=== PATIENT | female | born 1935 | race Caucasian/White ===

== ENCOUNTER 2016-11-10 12:00 | Outpatient (CLI) | payer MEDICARE ==
[~2016-11-10] VITALS: Ht 167.6 cm; Wt 72.6 kg
[~2016-11-10 12:00] MED LIST: ASPI-624 PO; CHOL100011 PO; FENO145T2 PO; FLAX100031 PO; HCT25T PO; IBUP200C14 PO; METO25TA2 PO; PROP1TAB77; SENN1TAB76 PO; TRM50T PO; [UNRECOGNIZED DRUG - REMARK]
[2016-11-10] MEDS ORDERED: FAMO20TA3 PO (12:15)
[2016-11-10] MEDS ORDERED: HYDR12.56 PO (12:15)
== END 2016-11-10 12:30 ==
LOC: PREOP 12:00
PROVIDERS: ATTEND Internal Medicine
DX: Z01.818 Encounter for other preprocedural examination (principal); R19.4 Change in bowel habit; Z86.010 Personal history of colon polyps; R13.10 Dysphagia, unspecified; R10.32 Left lower quadrant pain; R07.9 Chest pain, unspecified

== ENCOUNTER 2016-11-12 07:56 | Day surgery (SDC) | payer MEDICARE ==
--- NOTE | 2016-11-04 21:58 | HISTORY AND PHYSICAL ---
DATE OF SERVICE: PANENDOSCOPY HISTORY AND PHYSICAL HISTORY OF PRESENT ILLNESS: The patient is an 81-year-old, white female referred by Dr. Arteaga for panendoscopy. She reports a history of colon polyps and, over the past several months, has noted a change in stool caliber. She has noticed diminishing signs of her stool. She has had some left lower quadrant abdominal pain associated with this. She denies chills or fever. She has noticed some lower precordial chest discomfort as well and has noticed some dysphagia predominantly to pills and occasionally to solids. She denies problems with liquids. She denies melena or bright red blood per rectum. She does not believe that there has been associated weight loss. She does have a known history of diverticulosis. She denies chills or fever. PAST SURGICAL HISTORY: Significant for past MMA, hysterectomy and appendectomy, all in the distant past. She has a past history of being H pylori positive, but does not recall a past history of peptic ulcer disease, and she had undergone abdominal sonography within the past year and reports that this was unremarkable. PAST MEDICAL HISTORY: Significant for hyperlipidemia and hypertension, as well as chronic constipation, for which she has required Senokot 2 b.i.d. OTHER MEDICATIONS: Include fenofibrate 145 mg daily, metoprolol tartrate 25 mg b.i.d., hydrochlorothiazide 12.5 mg daily and famotidine 20 mg daily. FAMILY HISTORY: Her youngest brother has a history of ulcerative colitis and had to undergo colectomy subtotal for this. Oldest brother had [place] cell carcinoma and succumbed to this. SOCIAL HISTORY: She is a retired homemaker with no past history of smoking or alcohol intake. PHYSICAL EXAMINATION: GENERAL: Reveals a white female who appears to be in no acute distress, appearing a little younger than her stated age. VITAL SIGNS: Blood pressure was 144/80, weight is 160.9 pounds. HEENT: Sclerae nonicteric. Oral cavity reveals a Mallampati class 2 configuration, no evidence for posterior pharyngeal erythema is noted. NECK: Reveals no JVD, adenopathy or bruits. CHEST: Clear. CARDIOVASCULAR: Reveals regular rate and rhythm without murmur, S3 or S4. ABDOMEN: Soft, supple, without mass or organomegaly, left lower quadrant pain to palpation is present without rebound or guarding. EXTREMITIES: Reveal no cyanosis, clubbing or edema. REFERRING PHYSICIAN: Celia Arteaga DO ASSESSMENT: The patient was set up for panendoscopy due to left lower quadrant abdominal pain and change in stool caliber with a past history of colon polyps, as well as chest pain with dysphasia. She is set up for 11/12/2016. Prep instructions were given, and questions were answered. I thank you for the referral of this pleasant lady. Job ID: [id number] DocumentID: [id number] Dictated Date: 11/04/2016 21:06:02 Fifth Hand Date: 11/04/2016 21:57:48 Dictated By: TRUONG CRUZ MD MTDD
[~2016-11-12] VITALS: Ht 167.6 cm; Wt 72.6 kg
[~2016-11-12 07:56] MED LIST changes: +FAMO20TA3 PO; +HYDR12.56 PO
[2016-11-12 08:05] VITALS: BP 145/69
[2016-11-12] MEDS ORDERED: fentaNYL INJECTION 100 MCG/2 ML AMP IVP PRN (08:15)
[2016-11-12] MEDS ORDERED: FLUMAZENIL (ROMAZICON) 0.1 MG/ML 5 ML VIAL INJ PRN (08:15)
[2016-11-12] MEDS ORDERED: HURRICAINE EXT TUBE (BENZOCAINE) XX PRN (08:15)
[2016-11-12] MEDS ORDERED: MIDAZOLAM 2 MG/2 ML (VERSED) VIAL IVP PRN (08:15)
[2016-11-12] MEDS ORDERED: NALOXONE 0.4 MG/ML 1 ML (NARCAN) VIAL IVP PRN (08:15)
[2016-11-12] MEDS ORDERED: 1/2 NS IV SOLUTION 1,000 ML IV PRN (08:15)
[2016-11-12] MEDS ORDERED: LIDOCAINE JELLY 2% (XYLOCAINE) 5 ML TUBE MM PRN (08:15)
--- NOTE | 2016-11-12 08:30 | Pre-Op Note & Conscious Sedat ---
Pre-Operative Progress Note H&P Reviewed The H&P was reviewed, patient examined and no changes noted. Date H&P Reviewed: Nov 12, 2016 Time H&P Reviewed: 08:29 Conscious Sedation Pre-Proced ASA Class: 2 Airway Mallampati Classification: (squaxin appropriate class) I. II. III, IV Lungs Heart ASA score ASA 1: a normal healthy patient ASA 2: a patient with a mild systemic disease (mid diabetes, controlled hypertension, obesity ASA 3: a patient with a severe systemic disease that limits activity (angina , COPD, prior Myocardial infarction) ASA 4: a patient with an incapacitating disease that is a constant threat to life (CHF, renal failure) ASA 5: a moribund patient not expected to survive 24 hrs. (ruptured aneurysm) ASA 6: a declared brain patient whose organs are being harvested. For emergent operations, add the letter E after the classification Grade 2 Sedation Plan: Analgesia, Amnesia, Plan communicated to team members, Discussed options with patient/fam, Discussed risks with patient/fam Note The patient is an appropriate candidate to undergo the planned procedure, sedation, and anesthesia. The patient immediately re-assessed prior to indication. TRUONG CRUZ MD Nov 12, 2016 08:29
[2016-11-12] MEDS ORDERED: MIDAZOLAM 2 MG/2 ML (VERSED) VIAL ONE (08:32)
[2016-11-12] MEDS ORDERED: PROPOFOL INJECTION 50 ML IV ONE (08:32)
[2016-11-12] MEDS ORDERED: LIDOCAINE JELLY 2% (XYLOCAINE) 5 ML TUBE ONE (08:40)
[2016-11-12] MEDS ORDERED: HURRICAINE EXT TUBE (BENZOCAINE) ONE (08:40)
[2016-11-12 09:35] VITALS: BP 123/59
[2016-11-12 10:00] VITALS: BP 145/64
[2016-11-12 10:30] VITALS: BP 145/64
--- NOTE | 2016-11-12 12:23 | OPERATIVE REPORT ---
DATE OF SERVICE: OPERATION: Panendoscopy. INDICATIONS FOR THE PROCEDURE: Colonoscopy was performed for change in stool caliber with a history of colon polyps. EGD is performed for evaluation of dysphagia. PROCEDURE: The patient was placed in a left lateral decubitus position. Prior to undergoing colonoscopy, a digital rectal evaluation was performed. Anal sphincter tone was normal and the perianal reflex is intact. No abnormalities were noted on digital inspection of the anal canal or distal rectal vault. The colonoscope was then inserted into the rectum and under direct visualization advanced to the cecum. The cecum was identified by identification of the ileocecal valve and the cecal strap. Photographic documentation was obtained. A careful inspection was made as the colonoscope was withdrawn. FINDINGS: No evidence for internal or external hemorrhoids and the rectum was unremarkable. Moderate diverticular disease was present confined to the sigmoid colon with haustral hypertrophy. There were several large diverticulum and multiple small to medium diverticulum confined to the sigmoid colon without evidence for diverticulitis. One questionably inflammatory appearing polyp was noted at 20 cm in the distal sigmoid colon. It was photographed and biopsied and ablated with no subsequent blood loss. The descending colon, transverse colon, ascending colon and cecum, other than slightly enlarged caliber, as well as changes compatible with mild melanosis coli, were unremarkable. No other evidence for neoplasia, vascular malformation or inflammatory change was noted. ASSESSMENT: Moderate diverticular disease confined to the sigmoid colon was present with haustral hypertrophy. One inflammatory appearing polyp was noted in the distal sigmoid colon, which was biopsied and ablated and submitted for histopathology. The patient did have colon pigmentary changes compatible with mild diffuse melanosis coli. As long as there is no surprise on histopathology report would not advocate future surveillance colonoscopy. We then proceeded with EGD evaluation. The endoscope was inserted in the oral cavity and under direct visualization the esophagus was intubated. The endoscope was passed down the esophagus, through the stomach and into the second portion of the duodenum. Careful inspection was made as the endoscope was withdrawn. The patient tolerated the procedure well. FINDINGS: Posterior hypopharynx, true arytenoid aperture, true and false focal folds were unremarkable. There was a small traction appearing diverticulum in the upper esophagus. There was no evidence for food retention and no evidence for inflammation was noted. There was minimal erythema noted at the Z-line with a small hiatal hernia. There was no evidence for erosive esophagitis or stricture formation. Photograph was obtained. The cardia, fundus, antrum, pylorus, pyloric channel, duodenal bulb and second portion of the duodenum were unremarkable. ASSESSMENT: Small hiatal hernia that was present with mild erythema at the Z-line, but no evidence for erosive esophagitis or evidence to suggest Perry's change was noted. One small traction appearing diverticulum was noted in the upper esophagus without evidence for inflammation or food material. No other significant abnormalities that were identified. The patient was reassured by today's findings. Job ID: [id number] DocumentID: [id number] Dictated Date: 11/12/2016 09:35:17 Manager Transfusion Date: 11/12/2016 12:23:07 Dictated By: TRUONG CRUZ MD
== END 2016-11-12 10:30 | disposition home or self-care (01) ==
LOC: ENDO 07:56
PROVIDERS: ATTEND Internal Medicine
DX: K63.5 Polyp of colon (principal); R19.4 Change in bowel habit; K57.30 Diverticulosis of large intestine without perforation or abscess without bleeding; Z86.010 Personal history of colon polyps; K21.9 Gastro-esophageal reflux disease without esophagitis; K44.9 Diaphragmatic hernia without obstruction or gangrene; K22.5 Diverticulum of esophagus, acquired; E78.5 Hyperlipidemia, unspecified; I10 Essential (primary) hypertension; Z79.899 Other long term (current) drug therapy
CPT/HCPCS: 88305

== ENCOUNTER 2017-01-28 20:12 | Emergency (ER) | payer MEDICARE ==
[~2017-01-28] VITALS: Ht 167.6 cm; Wt 72.6 kg
--- OUTSIDE RECORDS SUMMARY | 2017-01-28 20:18 | XMS REPORT | Continuity of Care Document ---
Author Author [facility] Organization [facility] Address Unknown Phone Unavailable Allergies Active Description Code Type Severity Reaction Onset Reported/Identified Relationship to Patient Clinical Status Yes codeine [id number] Drug Allergy Mild N/A 01/18/2009 Yes nitroglycerin [id number] Drug Allergy Mild N/A 01/18/2009 Yes Penicillins [id number] Drug Allergy Mild N/A 01/18/2009 Yes niacin [id number] Drug Allergy Severe N/A 10/03/2013 Yes clarithromycin [id number] Drug Allergy Unknown N/A 10/03/2013 Yes hydroxyzine [id number] Drug Allergy Unknown N/A 10/03/2013 Yes metronidazole [id number] Drug Allergy Unknown N/A 10/03/2013 Yes Tetracyclines [id number] Drug Allergy Unknown N/A 10/03/2013 Yes tramadol [id number] Drug Allergy Unknown NAUSEA 10/03/2013 Medications Problems Date Dx Coded Attending Type Code Diagnosis Diagnosed By 10/05/2013 LUZ REMY, ARIELA Holman Ot 216.3 BENIGN JOANNE SKIN FACE NEC 10/05/2013 LUZ REMY, ARIELA Holman Ot 562.10 DIVERTICULOSIS COLON (W/O MENT OF HEMORR 10/05/2013 LUZ REMY, ARIELA Holman Ot 569.89 INTESTINAL DISORDERS NEC 10/05/2013 LUZ REMY, ARIELA Holman Ot 702.0 ACTINIC KERATOSIS 10/05/2013 LUZ REMY, ARIELA Holman Ot V12.72 PERSONAL HISTORY OF COLONIC POLYPS 10/05/2013 LUZ REMY, ARIELA Holman Ot V76.51 SCREEN MAL NEOP-COLON 07/01/2014 JENNIFER MORTON PULP REFINER OPERATOR Ot 442.3 07/01/2014 JENNIFER MORTON PULP REFINER OPERATOR Ot 443.9 07/08/2014 JENNIFER MORTON PULP REFINER OPERATOR Ot 442.3 07/08/2014 JENNIFER MORTON PULP REFINER OPERATOR Ot 443.9 04/23/2015 ELLIOTNDER DO, TATIANA S Ot 782.2 04/23/2015 ELLIOTNDER DO, TATIANA S Ot 793.81 04/24/2015 ELLIOTNDER DO, TATIANA S Ot 729.5 05/05/2015 ELLIOTNDER DO, TATIANA S Ot 782.2 05/05/2015 ELLIOTNDER DO, TATIANA S Ot 793.81 05/05/2015 ELLIOTNDER DO, TATIANA S Ot 729.5 03/30/2016 ELLIOTNDEMERY ARREGUIN, TATIANA S Ot Z12.31 ENCNTR SCREEN MAMMOGRAM FOR MALIGNANT NE 03/30/2016 ELLIOTNDEMERY ARREGUIN, TATIANA S Ot Z12.31 ENCNTR SCREEN MAMMOGRAM FOR MALIGNANT NE 04/21/2016 PADMINI ARREGUIN, TATIANA S Ot Z12.31 ENCNTR SCREEN MAMMOGRAM FOR MALIGNANT NE 05/15/2016 JAQUELINE BRAVO MD Ot R07.9 CHEST PAIN, UNSPECIFIED 05/15/2016 JAQUELINE BRAVO MD Ot Z79.82 LONGTERM (CURRENT) USE OF ASPIRIN 05/15/2016 JAQUELINE BRAVO MD Ot Z79.899 OTHER CONSTRUCTION WORKER (CURRENT) DRUG THERAPY 05/15/2016 Ot 443.9 PERIPH VASCULAR DIS NOS 05/15/2016 Ot 443.9 PERIPH VASCULAR DIS NOS 05/15/2016 Ot V76.12 OTH SCREEN MAMMO-MALIGN NEOPLASM OF CECILY 05/15/2016 Ot 786.09 RESPIRATORY ABNORM NEC 05/15/2016 Ot 786.2 COUGH 05/15/2016 Ot 719.06 JOINT EFFUSION-L/LEG 05/15/2016 Ot 959.3 ELB/FOREARM/WRST INJ NOS 05/15/2016 Ot 959.7 LOWER LEG INJURY NOS 05/15/2016 Ot E000.8 OTHER EXTERNAL CAUSE STATUS 05/15/2016 Ot E849.6 ACCIDENT IN PUBLIC BLDG 05/15/2016 Ot E888.9 FALL NOS 05/15/2016 Ot V76.12 OTH SCREEN MAMMO-MALIGN NEOPLASM OF CECILY 05/15/2016 Ot 443.9 PERIPH VASCULAR DIS NOS 05/15/2016 PADMINI ARREGUIN, TATIANA S Ot V76.12 OTH SCREEN MAMMO-MALIGN NEOPLASM OF CECILY 05/15/2016 ELLIOTNDER , TATIANA S Ot 443.9 PERIPH VASCULAR DIS NOS 05/15/2016 LUZ REMY, ARIELA Holman Ot 709.9 SKIN DISORDER NOS 05/15/2016 LUZ REMY, ARIELA Holman Ot V72.81 RNFL-GGG-WUDNLVCCM CARDIOVASCULAR 05/15/2016 LUZ REMY, ARIELA Holman Ot V72.84 EXAM PRE-OPERATIVE NOS 05/15/2016 LUZ REMY, ARIELA Holman Ot V74.8 SCREEN-BACTERIAL DIS NEC 05/15/2016 MARCY MORTONSA M PULP REFINER OPERATOR Ot V76.12 OTH SCREEN MAMMO-MALIGN NEOPLASM OF CECILY 05/15/2016 VANJEROMEREMARCYSA M PULP REFINER OPERATOR Ot 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 05/15/2016 VANISAACELAERE JENNIFER M PULP REFINER OPERATOR Ot 443.9 PERIPH VASCULAR DIS NOS 05/15/2016 ELLIOTNDER , TATIANA S Ot 782.2 LOCAL SUPRFICIAL SWELLNG 05/15/2016 ELLIOTNDER , TATIANA S Ot 793.81 MAMMOGRAPHIC MICROCLACIFICATION 05/15/2016 PADMINI ARREGUIN, TATIANA S Ot 729.5 PAIN IN LIMB 05/15/2016 ELLIOTNDER DO, TATIANA S Ot Z12.31 ENCNTR SCREEN MAMMOGRAM FOR MALIGNANT NE 05/15/2016 VANISAACELAEREJENNIFER M PULP REFINER OPERATOR Ot 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 05/15/2016 VANBECELAERE, JENNIFER M PULP REFINER OPERATOR Ot 443.9 PERIPH VASCULAR DIS NOS 05/15/2016 ELLIOTNDER DO, TATIANA S Ot 782.2 LOCAL SUPRFICIAL SWELLNG 05/15/2016 ELLIOTNDER DO, TATIANA S Ot 793.81 MAMMOGRAPHIC MICROCLACIFICATION 05/15/2016 ELLIOTNDER , TATIANA S Ot 729.5 PAIN IN LIMB 05/15/2016 PADMINI ARREGUIN, TATIANA S Ot Z12.31 ENCNTR SCREEN MAMMOGRAM FOR MALIGNANT NE 05/17/2016 SHELLY REMY, JAQUELINE [place] Ot R07.9 CHEST PAIN, UNSPECIFIED 05/17/2016 JAQUELINE BRAVO MD Ot Z79.82 LONGTERM (CURRENT) USE OF ASPIRIN 05/17/2016 QI BRAVO MDNEY K Ot Z79.899 OTHER CONSTRUCTION WORKER (CURRENT) DRUG THERAPY 11/08/2016 TREVERISAACJENNIFER SANTORO PULP REFINER OPERATOR Ot 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 11/08/2016 TREVERISAACJENNIFER SANTORO PULP REFINER OPERATOR Ot 443.9 PERIPH VASCULAR DIS NOS 11/08/2016 ORENDER DO, TATIANA S Ot 782.2 LOCAL SUPRFICIAL SWELLNG 11/08/2016 ORENDER DO, TATIANA S Ot 793.81 MAMMOGRAPHIC MICROCLACIFICATION 11/08/2016 ORENDER DO, TATIANA S Ot 729.5 PAIN IN LIMB 11/08/2016 ORENDER DO, TATIANA S Ot Z12.31 ENCNTR SCREEN MAMMOGRAM FOR MALIGNANT NE 11/08/2016 TRUONG CRUZ MD Ot Z53.9 PROCEDURE AND TREATMENT NOT CARRIED OUT, 11/09/2016 TRUONG CRUZ MD Ot E78.5 HYPERLIPIDEMIA, UNSPECIFIED 11/09/2016 TRUONG CRUZ MD Ot I10 ESSENTIAL (PRIMARY) HYPERTENSION 11/09/2016 TRUONG CRUZ MD Ot K59.09 OTHER CONSTIPATION 11/09/2016 TRUONG CRUZ MD Ot R10.32 LEFT LOWER QUADRANT PAIN 11/09/2016 TRUONG CRUZ MD Ot Z53.9 PROCEDURE AND TREATMENT NOT CARRIED OUT, 11/09/2016 TRUONG CRUZ MD Ot Z86.010 PERSONAL HISTORY OF COLONIC POLYPS 11/10/2016 TRUONG CRUZ MD Ot E78.5 HYPERLIPIDEMIA, UNSPECIFIED 11/10/2016 TRUONG CRUZ MD Ot I10 ESSENTIAL (PRIMARY) HYPERTENSION 11/10/2016 TRUONG CRUZ MD Ot K59.09 OTHER CONSTIPATION 11/10/2016 TRUONG CRUZ MD Ot R10.32 LEFT LOWER QUADRANT PAIN 11/10/2016 TRUONG CRUZ MD Ot Z53.9 PROCEDURE AND TREATMENT NOT CARRIED OUT, 11/10/2016 TRUONG CRUZ MD Ot Z86.010 PERSONAL HISTORY OF COLONIC POLYPS 11/10/2016 TRUOGN CRUZ MD Ot Z53.9 PROCEDURE AND TREATMENT NOT CARRIED OUT, 11/10/2016 TRUONG CRUZ MD Ot R07.9 CHEST PAIN, UNSPECIFIED 11/10/2016 TRUONG CRUZ MD Ot R10.32 LEFT LOWER QUADRANT PAIN 11/10/2016 TRUONG CRUZ MD Ot R13.10 DYSPHAGIA, UNSPECIFIED 11/10/2016 NANCY REMY, TRUONG Donahue Ot R19.4 CHANGE IN BOWEL HABIT 11/10/2016 NANCY REMY, TRUONG Donahue Ot Z01.818 ENCOUNTER FOR OTHER PREPROCEDURAL EXAMIN 11/10/2016 TRUONG CRUZ MD Ot Z86.010 PERSONAL HISTORY OF COLONIC POLYPS 11/10/2016 TRUONG CRUZ MD Ot E78.5 HYPERLIPIDEMIA, UNSPECIFIED 11/10/2016 TRUONG CRUZ MD Ot I10 ESSENTIAL (PRIMARY) HYPERTENSION 11/10/2016 TRUONG CRUZ MD Ot K59.09 OTHER CONSTIPATION 11/10/2016 TRUONG CRUZ MD Ot R10.32 LEFT LOWER QUADRANT PAIN 11/10/2016 TRUONG CRUZ MD Ot Z53.9 PROCEDURE AND TREATMENT NOT CARRIED OUT, 11/10/2016 TRUONG CRUZ MD Ot Z86.010 PERSONAL HISTORY OF COLONIC POLYPS 11/11/2016 TRUONG CRUZ MD Ot E78.5 HYPERLIPIDEMIA, UNSPECIFIED 11/11/2016 TRUONG CRUZ MD Ot I10 ESSENTIAL (PRIMARY) HYPERTENSION 11/11/2016 TRUONG CRUZ MD Ot K59.09 OTHER CONSTIPATION 11/11/2016 TRUONG CRUZ MD Ot R10.32 LEFT LOWER QUADRANT PAIN 11/11/2016 TRUONG CRUZ MD Ot Z53.9 PROCEDURE AND TREATMENT NOT CARRIED OUT, 11/11/2016 TRUONG CRUZ MD Ot Z86.010 PERSONAL HISTORY OF COLONIC POLYPS 11/11/2016 TRUONG CRUZ MD Ot E78.5 HYPERLIPIDEMIA, UNSPECIFIED 11/11/2016 TRUONG CRUZ MD Ot I10 ESSENTIAL (PRIMARY) HYPERTENSION 11/11/2016 TRUONG CRUZ MD Ot K59.09 OTHER CONSTIPATION 11/11/2016 TRUONG CRUZ MD Ot R10.32 LEFT LOWER QUADRANT PAIN 11/11/2016 TRUONG CRUZ MD Ot Z53.9 PROCEDURE AND TREATMENT NOT CARRIED OUT, 11/11/2016 TRUONG CRUZ MD Ot Z86.010 PERSONAL HISTORY OF COLONIC POLYPS 11/12/2016 TRUONG CRUZ MD Ot E78.5 HYPERLIPIDEMIA, UNSPECIFIED 11/12/2016 TRUONG CRUZ MD Ot I10 ESSENTIAL (PRIMARY) HYPERTENSION 11/12/2016 TRUONG CRUZ MD Ot K59.09 OTHER CONSTIPATION 11/12/2016 TRUONG CRUZ MD Ot R10.32 LEFT LOWER QUADRANT PAIN 11/12/2016 TRUONG CRUZ MD Ot Z53.9 PROCEDURE AND TREATMENT NOT CARRIED OUT, 11/12/2016 TRUONG CRUZ MD Ot Z86.010 PERSONAL HISTORY OF COLONIC POLYPS 11/12/2016 TRUONG CRUZ MD Ot E78.5 HYPERLIPIDEMIA, UNSPECIFIED 11/12/2016 TRUONG CRUZ MD Ot I10 ESSENTIAL (PRIMARY) HYPERTENSION 11/12/2016 TRUONG CRUZ MD Ot K21.9 GASTRO-ESOPHAGEAL REFLUX DISEASE WITHOUT 11/12/2016 TRUONG CRUZ MD Ot K22.5 DIVERTICULUM OF ESOPHAGUS, ACQUIRED 11/12/2016 TRUONG CRUZ MD Ot K44.9 DIAPHRAGMATIC HERNIA WITHOUT OBSTRUCTION 11/12/2016 TRUONG CRUZ MD Ot K57.30 DVRTCLOS OF LG INT W/O PERFORATION OR AB 11/12/2016 TRUONG CRUZ MD Ot K63.5 POLYP OF COLON 11/12/2016 TRUONG CRUZ MD Ot R19.4 CHANGE IN BOWEL HABIT 11/12/2016 TRUONG CRUZ MD Ot Z79.899 OTHER LONGTERM (CURRENT) DRUG THERAPY 11/12/2016 TRUONG CRUZ MD Ot Z86.010 PERSONAL HISTORY OF COLONIC POLYPS 11/26/2016 TRUONG CRUZ MD Ot E78.5 HYPERLIPIDEMIA, UNSPECIFIED 11/26/2016 TRUONG CRUZ MD Ot I10 ESSENTIAL (PRIMARY) HYPERTENSION 11/26/2016 TRUONG CRUZ MD Ot K21.9 GASTRO-ESOPHAGEAL REFLUX DISEASE WITHOUT 11/26/2016 TRUONG CRUZ MD Ot K22.5 DIVERTICULUM OF ESOPHAGUS, ACQUIRED 11/26/2016 TRUONG CRUZ MD Ot K44.9 DIAPHRAGMATIC HERNIA WITHOUT OBSTRUCTION 11/26/2016 TRUONG CRUZ MD Ot K57.30 DVRTCLOS OF LG INT W/O PERFORATION OR AB 11/26/2016 TRUONG CRUZ MD Ot K63.5 POLYP OF COLON 11/26/2016 TRUONG CRUZ MD Ot R19.4 CHANGE IN BOWEL HABIT 11/26/2016 TRUONG CRUZ MD Ot Z79.899 OTHER CONSTRUCTION WORKER (CURRENT) DRUG THERAPY 11/26/2016 TRUONG CRUZ MD Ot Z86.010 PERSONAL HISTORY OF COLONIC POLYPS Procedures Results Test Result Range Complete blood count (CBC) with automated white blood cell (WBC) differential - 05/15/16 15:12 Blood leukocytes automated count (number/volume) 6.6 10*3/ uL 4.3-11.0 Blood erythrocytes automated count (number/volume) 4.02 10*6 /uL 4.35-5.85 Venous blood hemoglobin measurement (mass/volume) 12.5 g/dL 11.5-16.0 Blood hematocrit (volume fraction) 37 % 35-52 Automated erythrocyte mean corpuscular volume 92 [foz_us] 80-99 Automated erythrocyte mean corpuscular hemoglobin (mass per erythrocyte) 31 pg 25-34 Automated erythrocyte mean corpuscular hemoglobin concentration measurement ( mass/volume) 34 g/dL 32-36 Automated erythrocyte distribution width ratio 12.4 % 10.0-14.5 Automated blood platelet count (count/volume) 397 10*3/uL 130-400 Automated blood platelet mean volume measurement 9.9 [foz_us ] 7.4-10.4 Automated blood neutrophils/100 leukocytes 60 % 42-75 Automated blood lymphocytes/100 leukocytes 26 % 12-44 Blood monocytes/100 leukocytes 11 % 0-12 Automated blood eosinophils/100 leukocytes 2 % 0-10 Automated blood basophils/100 leukocytes 1 % 0-10 Blood neutrophils automated count (number/volume) 4.0 10*3 1.8-7.8 Blood lymphocytes automated count (number/volume) 1.7 10*3 1.0-4.0 Blood monocytes automated count (number/volume) 0.7 10*3 0.0-1.0 Automated eosinophil count 0.1 10*3/uL 0.0-0.3 Automated blood basophil count (count/volume) 0.1 10*3/uL 0.0-0.1 Comprehensive metabolic panel - 05/15/16 15:12 Serum or plasma sodium measurement (moles/volume) 141 mmol/ L 135-145 Serum or plasma potassium measurement (moles/volume) 3.7 mmol/L 3.6-5.0 Serum or plasma chloride measurement (moles/volume) 106 mmol /L 98-107 Carbon dioxide 29 mmol/L 21-32 Serum or plasma anion gap determination (moles/volume) 6 mmol/L 5-14 Serum or plasma urea nitrogen measurement (mass/volume) 15 mg/dL 7-18 Serum or plasma creatinine measurement (mass/volume) 0.77 mg /dL 0.60-1.30 Serum or plasma urea nitrogen/creatinine mass ratio 19 NRG Serum or plasma creatinine measurement with calculation of estimated glomerular filtration rate > NRG Serum or plasma glucose measurement (mass/volume) 97 mg/dL 70-105 Serum or plasma calcium measurement (mass/volume) 9.7 mg/dL 8.5-10.1 Serum or plasma total bilirubin measurement (mass/volume) 0.5 mg/dL 0.1-1.0 Serum or plasma alkaline phosphatase measurement (enzymatic activity/volume) 56 U/L 40-136 Serum or plasma aspartate aminotransferase measurement (enzymatic activity/ volume) 37 U/L 5-34 Serum or plasma alanine aminotransferase measurement (enzymatic activity/volume ) 26 U/L 0-55 Serum or plasma protein measurement (mass/volume) 6.5 g/dL 6.4-8.2 Serum or plasma albumin measurement (mass/volume) 4.1 g/dL 3.2-4.5 Serum or plasma troponin i.cardiac measurement (mass/volume) - 05/15/16 15:12 Serum or plasma troponin i.cardiac measurement (mass/volume) < ng/mL <0.30 Encounters ACCT No. Visit Date/Time Discharge Status Pt. Type Provider Facility Loc./Unit Complaint [id number] 11/12/2016 07:56:00 2016 10:30:00 DIS Outpatient TRUONG CRUZ MD [facility] ENDO CHANGE IN STOOL CALIBER, HX COLON POLYPS, [id number] 11/10/2016 12:00:00 2016 12:30:00 DIS Outpatient TRUONG CRUZ MD [facility] PREOP CHANGE IN STOOL CALIBER, HX COLON POLYPS, [id number] 05/15/2016 14:09:00 2015 16:10:00 DIS Emergency JAQUELINE BRAVO MD [facility] ER CHEST TIGHTNESS [id number] 04/04/2015 11:42:00 2014 23:59:59 CLS Outpatient TATIANA WASHINGTON DO [facility] RAD RIGHT LEG CALF PAIN [id number] 04/02/2015 12:59:00 2014 23:59:59 CLS Outpatient ELLIOTTATIANA MCCAIN DO S [facility] RAD RT AXILLARY MASS [id number] 06/03/2014 11:40:00 2013 23:59:59 CLS Outpatient JENNIFER MORTON PULP REFINER OPERATOR [facility] RAD RT POPITEAL ANYEYRSM, [id number] 05/01/2014 14:37:00 2013 23:59:59 CLS Outpatient JENNIFER MORTON PULP REFINER OPERATOR [facility] RAD SCREENING [id number] 10/05/2013 09:13:00 2013 14:45:00 DIS Outpatient ARIELA ESCOBAR MD [facility] SDC LESIONS;HISTORY OF POLYPS [id number] 10/03/2013 15:27:00 2013 23:59:59 CLS Outpatient ARIELA ESCOBAR MD [facility] PREOP SKIN LESIONS;HISTORY OF POLYPS [id number] 06/04/2013 09:56:00 2012 23:59:59 CLS Outpatient TATIANA WASHINGTON DO S [facility] RAD PVD [id number] 04/04/2013 10:13:00 2012 23:59:59 CLS Outpatient MARCIAL WASHINGTON DOLINE S [facility] RAD SCREENING [id number] 05/15/2016 16:11:00 Document Registration [id number] 03/29/2016 07:37:00 ACT Outpatient TATIANA WASHINGTON DO S [facility] RAD MAMMO SCREENING [id number] 09/19/2012 09:49:00 Document Registration [id number] 03/29/2012 13:39:00 Document Registration [id number] 02/01/2012 14:57:00 Document Registration [id number] 09/21/2011 10:45:00 Document Registration [id number] 07/13/2011 14:11:00 Document Registration [id number] 03/11/2011 08:47:00 Document Registration [id number] 12/01/2010 13:46:00 Document Registration
--- NOTE | 2017-01-28 20:48 | ED Lower Extremity ---
General Chief Complaint: Lower Extremity Stated Complaint: LT FOOT INJURY Nursing Triage Note: c/o L ankle pain after twisting it at 1300 Nursing Sepsis Screen: No Definite Risk Source: patient, family Exam Limitations: no limitations History of Present Illness Time seen by provider: 20:43 Initial Comments Patient reports that she was taking a nap this afternoon the phone and off so she got up out of bed to get it but her left leg was still numb because she was laying on it under her right leg. When she went to navigate from one room to the next her foot caught threshold and she rolled her ankle and felt her leg bones touch the floor. She did not fall. Her head or pass out. She has had no discharge or dysuria. No fevers chills or rash or malaise. She is having some pain which she took some Tylenol and put ice directly to the foot which has helped immensely. Time of injury was 2:00 this afternoon. Allergies and Home Medications Allergies Coded Allergies: niacin (Unverified Allergy, Severe, 10/03/13) Penicillins (Unverified Allergy, Mild, 01/18/09) codeine (Unverified Allergy, Mild, 01/18/09) nitroglycerin (Unverified Allergy, Mild, 01/18/09) Tetracyclines (Unverified Allergy, Unknown, 10/03/13) clarithromycin (Unverified Allergy, Unknown, 10/03/13) hydroxyzine (Unverified Allergy, Unknown, 10/03/13) metronidazole (Unverified Allergy, Unknown, 10/03/13) tramadol (Unverified Allergy, Unknown, NAUSEA, 10/03/13) Home Medications Cholecalciferol 1,000 Unit Capsule, 1,000 UNIT PO BID, (Reported) Famotidine 20 Mg Tablet, 20 MG PO DAILY, (Reported) Fenofibrate,Micronized 145 Mg Tablet, 145 MG PO DAILY, (Reported) Flaxseed Oil 1,000 Mg Capsule, 1,000 MG PO DAILY, (Reported) Hydrochlorothiazide 12.5 Mg Tablet, 12.5 MG PO DAILY, (Reported) Metoprolol Tartrate 25 Mg Tablet, 25 MG PO BID, (Reported) Senna 1 Ea Tablet, 2 TAB PO BID, (Reported) Constitutional: No chills, No fever, No malaise EENTM: No blurred vision, No double vision Respiratory: No cough, No short of breath Cardiovascular: No chest pain, No edema Gastrointestinal: No abdominal pain, No constipation, No diarrhea, No nausea Genitourinary: No dysuria, No frequency Musculoskeletal: see HPI, joint pain (left foot and ankle) Skin: lesions (bruising to left foot), No pruritus, No rash Past Wwsygxt-Hgonox-Jdrcus Hx Patient Social History Alcohol Use: Denies Use Recreational Drug Use: No Smoking Status: Never a Smoker Recent Foreign Travel: No Contact w/Someone Who Travel: No Recent Infectious Disease Expo: No Recent Hopitalizations: No Seasonal Allergies Seasonal Allergies: Yes Surgeries HX Surgeries: Yes (bladder sx, ) Surgeries: Appendectomy, Hysterectomy, Tonsillectomy Respiratory Hx Respiratory Disorders: No Cardiovascular Hx Cardiac Disorders: Yes Cardiac Disorders: Hypertension Neurological Hx Neurological Disorders: No Reproductive System Hx Reproductive Disorders: No HATCH BOSS History: Hysterectomy Genitourinary Hx Genitourinary Disorders: No Gastrointestinal Hx Gastrointestinal Disorders: No (IBS) Gastrointestinal Disorders: Polyps, Irritable Bowel Musculoskeletal Hx Musculoskeletal Disorders: No Endocrine Hx Endocrine Disorders: No HEENT HX ENT Disorders: No Cancer Hx Cancer: No Psychosocial Hx Psychiatric Problems: No Integumentary HX Skin/Integumentary Disorder: No Blood Transfusions Hx Blood Disorders: No Physical Exam Vital Signs Vital Sign - Last 12Hours 01/28/17 20:25 Temp 98.1 Pulse 64 Resp 18 B/P (MAP) 172/80 Pulse Ox 97 O2 Delivery Room Air Capillary Refill : Less Than 3 Seconds General Appearance: WD/WN, no apparent distress Hips: left hip non-tender, left hip normal inspection, left hip normal range of motion Legs: left leg non-tender, left leg normal inspection, left leg normal range of motion Knees: left knee non-tender, left knee normal inspection, left knee normal range of motion Ankles: right ankle non-tender, right ankle normal inspection, right ankle normal range of motion, right ankle no evidence of injury, left ankle bone tenderness, left ankle ecchymosis, left ankle joint effusion, left ankle limited range of motion, left ankle pain, left ankle soft tissue tenderness, left ankle swelling Feet: right foot non-tender, right foot normal inspection, right foot normal range of motion, right foot no evidence of injury, left foot bone tenderness, left foot ecchymosis, left foot limited range of motion, left foot pain, left foot soft tissue tenderness, left foot swelling Neurologic/Tendon: normal sensation, normal motor functions, normal tendon functions, responds to pain Neurologic/Psychiatric: alert, oriented x 3 Skin: normal color, warm/dry, ecchymosis (left foot dorsum) Progress/Results/Core Measures Results/Orders My Orders Orders - TAMMY DELGADO Foot, Left, 3 Views (01/28/17 20:37) Ankle, Left, 3 Views (01/28/17 20:37) Vital Signs/I&O Vital Sign - Last 12Hours 01/28/17 20:25 Temp 98.1 Pulse 64 Resp 18 B/P (MAP) 172/80 Pulse Ox 97 O2 Delivery Room Air Blood Pressure Mean: 110 Diagnostic Imaging Diagonstic Imaging: Xray Plain Films/CT/US/NM/MRI: ankle (left) Comments NAME: BRAULIO GONZALEZ MED REC#: [id number] PHYSICIAN: TAMMY DELGADO MD CC: JACK SHAFFER; TAMMY DELGADO Page 1 of 1 RADIOLOGY REPORT VIA [facility] [place], [place] CC: JACK SHAFFER; TAMMY DELGADO Page 1 of 1 RADIOLOGY REPORT NAME: BRAULIO GONZALEZ MED REC#: [id number] PT STATUS: REG ER : 1935 PHYSICIAN: TAMMY DELGADO MD ADMIT DATE: 01/28/17/ER Signed Date of Exam: 01/28/17 ANKLE, LEFT, 3 VIEWS INDICATION: Ankle pain. Three views were obtained. FINDINGS: There is a questionable avulsion fracture off the dorsal aspect of the tarsonavicular. There are otherwise mild degenerative changes. There is no other fracture or dislocation. The plafonds and talar dome are intact. The ankle mortise is symmetric. IMPRESSION: Questionable small avulsion fracture off the dorsal aspect of tarsal navicular, otherwise unremarkable. Dictated by: Dictated on workstation # [id number] Dict: 01/28/172123 Trans: 01/28/172131 Interpreted by: JACK SHAFFER Electronically signed by: JACK SHAFFER 01/28/172131 Reviewed: Reviewed by Me Diagonstic Imaging: Xray Plain Films/CT/US/NM/MRI: other (left foot) Comments NAME: BRAULIO GONZALEZ MED REC#: [id number] PHYSICIAN: TAMMY DELGADO MD CC: JACK SHAFFER; TAMMY DELGADO Page 1 of 1 RADIOLOGY REPORT VIA [place], [place] CC: JACK SHAFFER; TAMMY DELGADO Page 1 of 1 RADIOLOGY REPORT NAME: BRAULIO GONZALEZ MED REC#: [id number] PT STATUS: REG ER : 1935 PHYSICIAN: TAMMY DELGADO MD ADMIT DATE: 01/28/17/ER Signed Date of Exam: 01/28/17 FOOT, LEFT, 3 VIEWS INDICATION: Pain. EXAMINATION: Multiple views of the left foot were obtained. FINDINGS: The alignment of the foot is normal. There is a questionable avulsion fracture off the dorsal aspect of the tarsal navicular. There is no other fracture or dislocation. Soft tissues are unremarkable. IMPRESSION: Findings suspect for a small avulsion fracture off the dorsal aspect of the tarsal navicular. Dictated by: Dictated on workstation # [id number] Dict: 01/28/172123 Trans: 01/28/172131 Interpreted by: JACK SHAFFER Electronically signed by: JACK SHAFFER 01/28/172131 Reviewed: Reviewed by Me Consults Consults : Consulting Physician: LEONARD STOREY DO Consults Notes Discussed the case. He will follow up outpatient at [facility] or so. He recommends a boot and crutches or walker. Departure Impression Impression: Primary Impression: Avulsion fracture of navicular bone of foot Qualified Codes: S92.252A - Displaced fracture of navicular [scaphoid] of left foot, initial encounter for closed fracture Disposition: 01 HOME, SELF-CARE Condition: Stable Departure-Patient Inst. Decision time for Depature: 22:18 Referrals: TATIANA WASHINGTON DO (PCP/Family) Primary Care Physician Patient Instructions: Foot Fracture (DC) Add. Discharge Instructions: You have an avulsion fracture of the navicular bone in your left foot. He should wear the boot at all times except to bathe. If you are ambulating you should take crutches or a walker with you. If you're having pain you can use 1000 mg of Tylenol or 800 mg of ibuprofen every 8 hours each. I encouraged you to place ice to the wound 4 times a day for 20 minutes for the first 4 days. Please elevate your foot above the level of your heart whenever possible. Rest your foot as much as possible. Please call Tuesday to follow up with an orthopedic surgeon of your choice. [address] Storey was consulted tonight about your foot. They are more than willing to see you. You may also follow-up with a apparatus repair mechanic or your primary care physician. All discharge instructions reviewed with patient and/or family. Voiced understanding. Copy Copies To 1: TATIANA WASHINGTON TITUS J Jan 28, 2017 20:48
--- NOTE | 2017-01-28 21:27 | Diagnostic Imaging Report ---
INDICATION: Ankle pain. Three views were obtained. FINDINGS: There is a questionable avulsion fracture off the dorsal aspect of the tarsonavicular. There are otherwise mild degenerative changes. There is no other fracture or dislocation. The plafonds and talar dome are intact. The ankle mortise is symmetric. IMPRESSION: Questionable small avulsion fracture off the dorsal aspect of tarsal navicular, otherwise unremarkable. Dictated by: Dictated on workstation # [id number]
--- NOTE | 2017-01-28 21:28 | Diagnostic Imaging Report ---
INDICATION: Pain. EXAMINATION: Multiple views of the left foot were obtained. FINDINGS: The alignment of the foot is normal. There is a questionable avulsion fracture off the dorsal aspect of the tarsal navicular. There is no other fracture or dislocation. Soft tissues are unremarkable. IMPRESSION: Findings suspect for a small avulsion fracture off the dorsal aspect of the tarsal navicular. Dictated by: Dictated on workstation # [id number]
[2017-01-28 22:28] VITALS: BP 172/80
== END 2017-01-28 22:29 | disposition home or self-care (01) ==
LOC: EDUNIT# 20:12 → ER 20:13
DX: S92.252A Displaced fracture of navicular [scaphoid] of left foot, initial encounter for closed fracture (principal); I10 Essential (primary) hypertension; X50.0XXA Overexertion from strenuous movement or load, initial encounter
CPT/HCPCS: 73610; 73630; 99283

== ENCOUNTER → 2017-05-16 | Outpatient (CLI) | payer MEDICARE ==
--- NOTE | 2017-05-16 14:07 | Diagnostic Imaging Report ---
PROCEDURE: US Carotid Duplex Bilateral. TECHNIQUE: Multiple real-time grayscale images were obtained over the carotid arteries in various projections bilaterally. Additional duplex Doppler and color Doppler images were also obtained. INDICATION: Tingling in the right side of the face. FINDINGS: Grayscale images demonstrate no significant atherosclerotic plaque. Color Doppler demonstrates patency of the common, internal and external carotid arteries on both sides. The vertebral arteries demonstrate antegrade flow bilaterally. Peak systolic velocities in the right ICA are 65, 67 and 124 cm/s and on the left are 66, 74 and 79 cm/s. ICA/CCA ratios are up to 0.8 on the right and up to 0.7 on the left. IMPRESSION: Estimated underlying stenosis is in the range of 0-25% bilaterally. Dictated by: Dictated on workstation # [id number]
== END ==
LOC: RAD 12:36
PROVIDERS: ATTEND Family Medicine
DX: R20.2 Paresthesia of skin (principal); G45.9 Transient cerebral ischemic attack, unspecified; K11.7 Disturbances of salivary secretion
CPT/HCPCS: 93880

== ENCOUNTER → 2017-06-13 | Outpatient (CLI) | payer MEDICARE | LOC: RAD 11:28 | PROVIDERS: ATTEND Family Medicine | DX: K11.7 Disturbances of salivary secretion (principal); G45.9 Transient cerebral ischemic attack, unspecified | CPT/HCPCS: 93306 ==

== ENCOUNTER → 2017-08-10 | Outpatient (CLI) | payer MEDICARE ==
--- NOTE | 2017-08-10 14:44 | Diagnostic Imaging Report ---
INDICATION: Pain in the right great toe. TIME OF EXAM: 1:39 PM. TECHNIQUE: Three views of the right foot were obtained. FINDINGS: The metatarsals are intact. The phalanges are intact. No fractures are seen. The midfoot and hindfoot are unremarkable. IMPRESSION: No acute bony abnormality is detected. Dictated by: Dictated on workstation # [id number]
== END ==
LOC: RAD 13:13
PROVIDERS: ATTEND Nurse Practitioner Family
DX: M79.674 Pain in right toe(s) (principal)
CPT/HCPCS: 73630

== ENCOUNTER → 2018-02-03 | Outpatient (CLI) | payer MEDICARE ==
--- NOTE | 2018-02-03 12:00 | Diagnostic Imaging Report ---
PROCEDURE: CT abdomen and pelvis without contrast. TECHNIQUE: Multiple contiguous axial images were obtained through the abdomen and pelvis without the use of intravenous contrast. INDICATION: Abdominal pain. COMPARISON: 01/08/2010 FINDINGS: The lung bases are clear. The liver appears unremarkable. The gallbladder is mildly distended but otherwise unremarkable. There is no biliary dilatation. The pancreas appears unremarkable. There are a few tiny calcified granulomas in the spleen which is otherwise unremarkable. The adrenal glands appear normal. There is a cortical cyst in the medial left kidney. There is also a cyst off the inferior pole of the right kidney which is larger than the prior study. There are a few nonobstructive calculi bilaterally. No ureteral stone is seen. The appendix appears normal. There is moderate diverticulosis without evidence of diverticulitis or other focal inflammatory process. There is no free fluid, free air or adenopathy. Uterus is absent. There is atherosclerosis of the abdominal aorta without aneurysm. There are degenerative changes in the spine. IMPRESSION: 1. Diverticulosis without evidence of diverticulitis minimal 2. Bilateral renal cysts and bilateral nonobstructive nephrolithiasis 3. Gallbladder appears mildly distended otherwise unremarkable. 4. No additional abnormality is suspected. Dictated by: Dictated on workstation # [id number]
== END ==
LOC: RAD 11:19
PROVIDERS: ATTEND Family Medicine
DX: K57.30 Diverticulosis of large intestine without perforation or abscess without bleeding (principal); N28.1 Cyst of kidney, acquired; N20.0 Calculus of kidney; K82.8 Other specified diseases of gallbladder
CPT/HCPCS: 74176

== ENCOUNTER 2018-06-09 09:34 | Emergency (ER) | payer MEDICARE ==
[~2018-06-09] VITALS: Ht 167.6 cm; Wt 69.9 kg
--- OUTSIDE RECORDS SUMMARY | 2018-06-09 09:39 | XMS REPORT ---
Author Author MIGEL PASCUAL [facility] Address [address] [place] [address] Care Team Providers Care Trimmer Tailer Name Role Phone MIGEL PASCUAL Unavailable PROBLEMS Type Condition ICD9-CM Code [id number] Code Onset Dates Condition Status SNOMED Code Problem Lumbago with sciatica, right side M54.41 Active 768637769 Problem Other chronic pain G89.29 Active 60622793 ALLERGIES No Information SOCIAL HISTORY Never Assessed PLAN OF CARE VITAL SIGNS MEDICATIONS Unknown Medications RESULTS No Results PROCEDURES No Known procedures IMMUNIZATIONS No Known Immunizations
--- OUTSIDE RECORDS SUMMARY | 2018-06-09 09:39 | XMS REPORT ---
Author Author MIGEL PASCUAL [facility] Address [address] [place] [address] Care Team Providers Care Ore Crushing Dust Collector Name Role Phone MIGEL PASCUAL Unavailable PROBLEMS Type Condition ICD9-CM Code [id number] Code Onset Dates Condition Status SNOMED Code Problem Lumbago with sciatica, right side M54.41 Active 624497150 Problem Other chronic pain G89.29 Active 19982062 ALLERGIES Substance Reaction Event Type Date Status Tramadol HCl Unknown Drug Allergy Aug, Active Tetracycline HCl Unknown Drug Allergy Aug, Active Penicillin G Sodium Unknown Drug Allergy Aug, Active Nitroglycerin Unknown Drug Allergy Aug, Active Niacin Unknown Drug Allergy Aug, Active HydrOXYzine HCl Unknown Drug Allergy Aug, Active Crestor Unknown Drug Allergy Aug, Active Codeine Sulfate Unknown Drug Allergy Aug, Active Clarithromycin Unknown Drug Allergy Aug, Active SOCIAL HISTORY Never Assessed PLAN OF CARE Activity Details Follow Up prn Reason: VITAL SIGNS Height 66.5 in 2016-09-12 Weight 161.2 lbs 2016-09-12 Temperature 98.0 degrees Fahrenheit 2016-09-12 Heart Rate 64 bpm 2016-09-12 Respiratory Rate 20 2016-09-12 BMI 25.63 kg/m2 2016-09-12 Blood pressure systolic 148 mmHg 2016-09-12 Blood pressure diastolic 78 mmHg 2016-09-12 MEDICATIONS Medication Instructions Dosage Frequency Start Date End Date Duration Status Fenofibrate Active Baclofen 10 MG Orally Three times a day as needed 1 tablet with food or milk Aug, Sep, 7 days Active Metoprolol Tartrate Active PredniSONE 20 MG Orally 3 tablets x 3 days, followed by 2 tablets x 3 days, followed by 1 tablet x 3 days. as directed Aug, Sep, 9 days Active Cyclobenzaprine HCl 10 MG Orally Three times a day 1/2 to 1 tablet as needed 8h Aug, Sep, 5 days Active Hydrochlorothiazide Active RESULTS No Results PROCEDURES Procedure Date Ordered Result Body Site [facility] VISIT ESTABLISHED PATIENT Sep 12, 2016 IMMUNIZATIONS No Known Immunizations
--- OUTSIDE RECORDS SUMMARY | 2018-06-09 09:39 | XMS REPORT ---
Author Author ARLETH HANKS [facility] Address [address] [place] [address] Care Team Providers Care Wood Drill Operator Name Role Phone ARLETH HANKS Unavailable PROBLEMS Type Condition ICD9-CM Code [id number] Code Onset Dates Condition Status SNOMED Code Problem Lumbago with sciatica, right side M54.41 Active 129062205 Problem Other chronic pain G89.29 Active 49977026 ALLERGIES Substance Reaction Event Type Date Status Tramadol HCl Unknown Drug Allergy Apr, Active Tetracycline HCl Unknown Drug Allergy Apr, Active Penicillin G Sodium Unknown Drug Allergy Apr, Active Nitroglycerin Unknown Drug Allergy Apr, Active Niacin Unknown Drug Allergy Apr, Active HydrOXYzine HCl Unknown Drug Allergy Apr, Active Crestor Unknown Drug Allergy Apr, Active Codeine Sulfate Unknown Drug Allergy Apr, Active Clarithromycin Unknown Drug Allergy Apr, Active ENCOUNTERS Encounter Location Date Diagnosis [facility] [id number] [place] [phone] Apr, Acute bronchiolitis J21.9 [facility] IN [facility] [id number] [place] [phone] Jul, Fatigue, unspecified type R53.83 [facility] [id number] [place] [phone] Aug, [facility] [id number] [place] [phone] Aug, Lumbago with sciatica, right side M54.41 and Other chronic pain G89.29 IMMUNIZATIONS No Known Immunizations SOCIAL HISTORY Never Assessed REASON FOR VISIT congestion and cough. reports her sputum has been yellow. reports she had a coughins spell earlier this evening that she coughed a lot. [email or web address] PLAN OF CARE Activity Details Follow Up prn Reason: VITAL SIGNS Height 66.5 in 2018-05-09 Weight 158.0 lbs 2018-05-09 Temperature 98.1 degrees Fahrenheit 2018-05-09 Heart Rate 88 bpm 2018-05-09 Respiratory Rate 20 2018-05-09 BMI 25.12 kg/m2 2018-05-09 Blood pressure systolic 132 mmHg 2018-05-09 Blood pressure diastolic 68 mmHg 2018-05-09 MEDICATIONS Medication Instructions Dosage Frequency Start Date End Date Duration Status Fenofibrate 200 MG Orally Once a day 1 capsule with a meal 24h 30 day (s) Active Linzess 290 MCG Orally Once a day 1 capsule 24h 30 day(s) Active Metoprolol Succinate 25 MG Orally Once a day 1 capsule 24h 30 day(s) Active Azithromycin 1 GM Orally Once a day as directed 24h Apr, Apr, 1 dose Active Aspir-81 81 MG Orally Once a day 1 tablet 24h 30 day(s) Active Hydrochlorothiazide 12.5 MG Orally Once a day 1 capsule in the morning 24h 30 day(s) Active RESULTS No Results PROCEDURES Procedure Date Ordered Result Body Site [facility] VISIT ESTABLISHED PATIENT May 09, 2018 INSTRUCTIONS MEDICATIONS ADMINISTERED No Known Medications MEDICAL (GENERAL) HISTORY Type Description Date Surgical History AIXA with BSO Surgical History appendectomy Surgical History T&A Hospitalization History post op
--- OUTSIDE RECORDS SUMMARY | 2018-06-09 09:40 | XMS REPORT | Continuity of Care Document ---
Author Author [facility] Organization [facility] Address Unknown Phone Unavailable Allergies Active Description Code Type Severity Reaction Onset Reported/Identified Relationship to Patient Clinical Status Yes codeine [id number] Drug Allergy Mild N/A 01/18/2009 Yes nitroglycerin [id number] Drug Allergy Mild N/A 01/18/2009 Yes Penicillins [id number] Drug Allergy Mild N/A 01/18/2009 Yes niacin [id number] Drug Allergy Severe N/A 10/03/2013 Yes clarithromycin [id number] Drug Allergy Unknown N/A 10/03/2013 Yes hydroxyzine [id number] Drug Allergy Unknown N/A 10/03/2013 Yes metronidazole [id number] Drug Allergy Unknown N/A 10/03/2013 Yes Tetracyclines [id number] Drug Allergy Unknown N/A 10/03/2013 Yes tramadol [id number] Drug Allergy Unknown NAUSEA 10/03/2013 Medications There is no data. Problems Date Dx Coded Attending Type Code [...] V76.51 SCREEN MAL NEOP-COLON 07/01/2014 JENNIFER MORTON ENTERPRISE MOBILITY ARCHITECT Ot 442.3 07/01/2014 JENNIFER MORTON ENTERPRISE MOBILITY ARCHITECT Ot 443.9 07/08/2014 JENNIFER MOROTN ENTERPRISE MOBILITY ARCHITECT Ot 442.3 07/08/2014 JENNIFER MORTON ENTERPRISE MOBILITY ARCHITECT Ot 443.9 04/23/2015 ORENDER DO, CELIA S Ot 782.2 04/23/2015 ORENDER DO, CELIA S Ot 793.81 04/24/2015 ORENDER DO, CELIA S Ot 729.5 05/05/2015 ORENDER DO, CELIA S Ot 782.2 05/05/2015 ORENDER DO, CELIA S Ot 793.81 05/05/2015 ORENDER DO, CELIA S Ot 729.5 03/30/2016 ORENDER DO, CELIA S Ot Z12.31 ENCNTR SCREEN MAMMOGRAM FOR MALIGNANT NE 03/30/2016 ELLIOTNDER DO, CELIA S Ot Z12.31 ENCNTR SCREEN MAMMOGRAM FOR MALIGNANT NE 04/21/2016 ELLIOTNDER DO, CELIA S Ot Z12.31 ENCNTR SCREEN MAMMOGRAM FOR MALIGNANT NE 05/15/2016 JAQUELINE BRAVO MD Ot R07.9 CHEST PAIN, UNSPECIFIED 05/15/2016 JAQUELINE BRAVO MD Ot Z79.82 HALF-WAY (CURRENT) USE OF ASPIRIN 05/15/2016 JAQUELINE BRAVO MD Ot Z79.899 OTHER POST DOC FELLOWSHIP (CURRENT) DRUG THERAPY 05/15/2016 Ot 443.9 PERIPH VASCULAR DIS NOS 05/15/2016 Ot 443.9 PERIPH VASCULAR DIS NOS 05/15/2016 Ot V76.12 OTH SCREEN MAMMO-MALIGN NEOPLASM OF CECILY 05/15/2016 Ot 786.09 RESPIRATORY ABNORM NEC 05/15/2016 Ot 786.2 COUGH 05/15/2016 Ot 719.06 JOINT EFFUSION-L/LEG 05/15/2016 Ot 959.3 ELB/FOREARM/ WRST INJ NOS 05/15/2016 Ot 959.7 LOWER LEG INJURY NOS 05/15/2016 Ot E000.8 OTHER EXTERNAL CAUSE STATUS 05/15/2016 Ot E849.6 ACCIDENT IN PUBLIC BLDG 05/15/2016 Ot E888.9 FALL NOS 05/15/2016 Ot V76.12 OTH SCREEN MAMMO-MALIGN NEOPLASM OF CECILY 05/15/2016 Ot 443.9 PERIPH VASCULAR DIS NOS 05/15/2016 ELLIOTNDER DO, CELAI S Ot V76.12 OTH SCREEN MAMMO-MALIGN NEOPLASM OF CECILY 05/15/2016 ELLIOTNDER DO CELIA S Ot 443.9 PERIPH VASCULAR DIS NOS 05/15/2016 LUZ REMY, ARIELA Holman Ot 709.9 SKIN DISORDER NOS 05/15/2016 LUZ REMY, ARIELA Holman Ot V72.81 [id number] CARDIOVASCULAR 05/15/2016 LUZ REMY, ARIELA Holman Ot V72.84 EXAM PRE-OPERATIVE NOS 05/15/2016 LUZ REMY, ARIELA Holman Ot V74.8 SCREEN-BACTERIAL DIS NEC 05/15/2016 MARCY MORTONSA M ENTERPRISE MOBILITY ARCHITECT Ot V76.12 OTH SCREEN MAMMO-MALIGN NEOPLASM OF CECILY 05/15/2016 VANMARCY PRESLEYSA M ENTERPRISE MOBILITY ARCHITECT Ot 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 05/15/2016 VANJEROMERE JENNIFER M ENTERPRISE MOBILITY ARCHITECT Ot 443.9 PERIPH VASCULAR DIS NOS 05/15/2016 PADMINI ARREGUIN CELIA S Ot 782.2 LOCAL SUPRFICIAL SWELLNG 05/15/2016 PADMINI ARREGUIN, CELIA S Ot 793.81 MAMMOGRAPHIC MICROCLACIFICATION 05/15/2016 PADMINI ARREGUIN, CELIA S Ot 729.5 PAIN IN LIMB 05/15/2016 ELLIOTNDEMERY ARREGUIN, CELIA S Ot Z12.31 ENCNTR SCREEN MAMMOGRAM FOR MALIGNANT NE 05/15/2016 MARCY MORTONSA M ENTERPRISE MOBILITY ARCHITECT Ot 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 05/15/2016 VANBECELAEREMARCYSA M ENTERPRISE MOBILITY ARCHITECT Ot 443.9 PERIPH VASCULAR DIS NOS 05/15/2016 ELLIOTNDER DO CELIA S Ot 782.2 LOCAL SUPRFICIAL SWELLNG 05/15/2016 ELLIOTNDER DO, CELIA S Ot 793.81 MAMMOGRAPHIC MICROCLACIFICATION 05/15/2016 ENRICOER DO CELIA S Ot 729.5 PAIN IN LIMB 05/15/2016 PADMINI ARREGUIN, CLEIA S Ot Z12.31 ENCNTR SCREEN MAMMOGRAM FOR MALIGNANT NE 05/17/2016 SHELLY REMY, JAQUELINE [place] Ot R07.9 CHEST PAIN, UNSPECIFIED 05/17/2016 JAQUELINE BRAVO MD Ot Z79.82 HALF-WAY (CURRENT) USE OF ASPIRIN 05/17/2016 SHELLY REMY, JAQUELINE [place]field Ot Z79.899 OTHER HALF-WAY (CURRENT) DRUG THERAPY 11/08/2016 TREVERISAACJENNIFER SANTORO ENTERPRISE MOBILITY ARCHITECT Ot 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 11/08/2016 JENNIFER MORTON ENTERPRISE MOBILITY ARCHITECT Ot 443.9 PERIPH VASCULAR DIS NOS 11/08/2016 ORENDER DO, CELIA S Ot 782.2 LOCAL SUPRFICIAL SWELLNG 11/08/2016 ELLIOTNDER DO, CELIA S Ot 793.81 MAMMOGRAPHIC MICROCLACIFICATION 11/08/2016 ELLIOTNDER DO, CELIA S Ot 729.5 PAIN IN LIMB 11/08/2016 ELLIOTNDER DO, CELIA S Ot Z12.31 ENCNTR SCREEN MAMMOGRAM FOR [...] COLONIC POLYPS 11/10/2016 TRUONG CRUZ MD Ot Z53.9 PROCEDURE AND TREATMENT NOT CARRIED OUT, 11/10/2016 TRUONG CRUZ MD Ot R07.9 CHEST PAIN, UNSPECIFIED 11/10/2016 TRUONG CRUZ MD Ot R10.32 LEFT LOWER QUADRANT PAIN 11/10/2016 NANCY REMY, TRUONG Donahue Ot R13.10 DYSPHAGIA, UNSPECIFIED 11/10/2016 NANCY REMY, TRUONG Donahue Ot R19.4 CHANGE IN BOWEL HABIT 11/10/2016 NANCY REMY, TRUONG Donahue Ot Z01.818 ENCOUNTER FOR OTHER PREPROCEDURAL EXAMIN 11/10/2016 NANCY REMY, TRUONG Donahue Ot Z86.010 PERSONAL HISTORY OF COLONIC POLYPS 11/10/2016 TRUONG CRUZ MD Ot E78.5 HYPERLIPIDEMIA, UNSPECIFIED 11/10/2016 TRUONG CRUZ MD Ot I10 ESSENTIAL (PRIMARY) HYPERTENSION 11/10/2016 NANCY REMY, TRUONG Donahue Ot K59.09 OTHER CONSTIPATION 11/10/2016 TRUONG CRUZ [...] 11/12/2016 TRUONG CRUZ MD Ot Z79.899 OTHER HALF-WAY (CURRENT) DRUG THERAPY 11/12/2016 TRUONG CRUZ MD [...] 11/26/2016 TRUONG CRUZ MD Ot Z79.899 OTHER HALF-WAY (CURRENT) DRUG THERAPY 11/26/2016 TRUONG CRUZ MD Ot Z86.010 PERSONAL HISTORY OF COLONIC POLYPS 01/28/2017 DANNY REMY, TAMMY Stevens Ot I10 ESSENTIAL (PRIMARY) HYPERTENSION 01/28/2017 DANNY REMY, TAMMY Stevens Ot S92.252A DISP FX OF NAVICULAR OF LEFT FOOT, INIT 01/28/2017 DANNY REMY, TMAMY Stevens Ot S99.912A UNSPECIFIED INJURY OF LEFT ANKLE, INITIA 01/28/2017 DANNY REMY, TAMMY Stevens Ot X50.0XXA OVEREXERTION FROM STRENUOUS MOVEMENT OR 05/05/2017 CELIA ARTEAGA DO S Ot G45.9 TRANSIENT CEREBRAL ISCHEMIC ATTACK, UNSP 05/05/2017 CELIA ARTEAGA DO S Ot G45.9 TRANSIENT CEREBRAL ISCHEMIC ATTACK, UNSP 05/05/2017 CELIA ARTEAGA DO S Ot G45.9 TRANSIENT CEREBRAL ISCHEMIC ATTACK, UNSP 05/05/2017 Ot 719.06 JOINT EFFUSION-L/LEG 05/05/2017 Ot 959.3 ELB/FOREARM/ WRST INJ NOS 05/05/2017 Ot 959.7 LOWER LEG INJURY NOS 05/05/2017 Ot E000.8 OTHER EXTERNAL CAUSE STATUS 05/05/2017 Ot E849.6 ACCIDENT IN PUBLIC BLDG 05/05/2017 Ot E888.9 FALL NOS 05/05/2017 Ot V76.12 OTH SCREEN MAMMO-MALIGN NEOPLASM OF CECILY 05/05/2017 Ot 443.9 PERIPH VASCULAR DIS NOS 05/05/2017 CELIA ARTEAGA DO S Ot V76.12 OTH SCREEN MAMMO-MALIGN NEOPLASM OF CECILY 05/05/2017 CELIA ARTEAGA DO S Ot 443.9 PERIPH VASCULAR DIS NOS 05/05/2017 LUZ REMY, ARIELA Holman Ot 709.9 SKIN DISORDER NOS 05/05/2017 LUZ REMY, ARIELA Holman Ot V72.81 [id number] CARDIOVASCULAR 05/05/2017 ARIELA ESCOBAR MD Ot V72.84 EXAM PRE-OPERATIVE NOS 05/05/2017 LUZ REMY, ARIELA Holman Ot V74.8 SCREEN-BACTERIAL DIS NEC 05/05/2017 JENNIFER MORTON Ot V76.12 OTH SCREEN MAMMO-MALIGN NEOPLASM OF CECILY 05/05/2017 JENNIFER MORTON ENTERPRISE MOBILITY ARCHITECT Ot 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 05/05/2017 JENNIFER MORTON ENTERPRISE MOBILITY ARCHITECT Ot 443.9 PERIPH VASCULAR DIS NOS 05/05/2017 MARCIAL ARTEAGA DOLINE S Ot 782.2 LOCAL SUPRFICIAL SWELLNG 05/05/2017 ELLIOTNDEMERY ARREGUIN, CELIA S Ot 793.81 MAMMOGRAPHIC MICROCLACIFICATION 05/05/2017 PADMINI ARREGUIN, CELIA S Ot 729.5 PAIN IN LIMB 05/05/2017 ELLIOTNDEMERY ARREGUIN, CELIA S Ot Z12.31 ENCNTR SCREEN MAMMOGRAM FOR MALIGNANT NE 05/05/2017 ELLIOTNDER DO, CELIA S Ot G45.9 TRANSIENT CEREBRAL ISCHEMIC ATTACK, [facility] 05/05/2017 ORENDER DO, CELIA S Ot G45.9 TRANSIENT CEREBRAL ISCHEMIC ATTACK, [facility] 06/07/2017 ORENDER DO, CELIA S Ot G45.9 TRANSIENT CEREBRAL ISCHEMIC ATTACK, [facility] 06/07/2017 ELLIOTNDER DO, CELIA S Ot K11.7 DISTURBANCES OF SALIVARY SECRETION 06/07/2017 ORENDER DO, CELIA S Ot R20.2 PARESTHESIA OF SKIN 06/16/2017 ORENDER DO, CELIA S Ot G45.9 TRANSIENT CEREBRAL ISCHEMIC ATTACK, [facility] 06/16/2017 ORENDER DO, CELIA S Ot K11.7 DISTURBANCES OF SALIVARY SECRETION 06/16/2017 ORENDER DO, CELIA S Ot R20.2 PARESTHESIA OF SKIN 07/12/2017 ORENDER DO, CELIA S Ot G45.9 TRANSIENT CEREBRAL ISCHEMIC ATTACK, [facility] 07/12/2017 ORENDER DO, CELIA S Ot K11.7 DISTURBANCES OF SALIVARY SECRETION 07/21/2017 ORENDER DO, CELIA S Ot G45.9 TRANSIENT [facility]BR[facility]MIC [facility]ACK[facility] 07/21/2017 ORENDER DO, CELIA S Ot K11.7 DISTURBANCES OF SALIVARY SECRETION 08/11/2017 FRANCINE VAN APRN Ot M79.674 PAIN IN RIGHT TOE(S) 08/26/2017 FRANCINE VAN APRN Ot M79.674 PAIN IN RIGHT TOE(S) 08/31/2017 FRANCINE VAN APRN Ot M79.674 PAIN IN RIGHT TOE(S) 02/06/2018 CELIA ARTEAGA DO Ot K57.30 DVRTCLOS OF LG INT W/O PERFORATION OR AB 02/06/2018 CELIA ARTEAGA DO Ot K82.8 OTHER SPECIFIED DISEASES OF GALLBLADDER 02/06/2018 CELIA ARTEAGA DO Ot N20.0 CALCULUS OF KIDNEY 02/06/2018 CELIA ARTEAGA DO Ot N28.1 CYST OF KIDNEY, ACQUIRED Procedures There is no data. Results Test Result Range Complete blood count (CBC) with automated white blood cell (WBC) differential - 05/15/16 15:12 Blood leukocytes automated count (number/volume) 6.6 10*3/uL 4.3-11.0 Blood erythrocytes automated count (number/volume) 4.02 10*6/uL 4.35-5.85 Venous blood hemoglobin measurement (mass/volume) 12.5 [...] Automated blood platelet mean volume measurement 9.9 [foz_us] 7.4-10.4 Automated blood neutrophils/100 leukocytes 60 % [...] Serum or plasma sodium measurement (moles/volume) 141 mmol/L 135-145 Serum or plasma potassium measurement (moles/volume) 3.7 mmol/L 3.6-5.0 Serum or plasma chloride measurement (moles/volume) 106 mmol/L 98-107 Carbon dioxide 29 mmol/L 21-32 Serum or plasma anion gap determination (moles/volume) 6 mmol/L 5-14 Serum or plasma urea nitrogen measurement (mass/volume) 15 mg/dL 7-18 Serum or plasma creatinine measurement (mass/volume) 0.77 mg/dL 0.60-1.30 Serum or plasma urea nitrogen/creatinine mass [...] or plasma troponin i.cardiac measurement (mass/volume) < ng/ mL <0.30 Encounters ACCT No. Visit Date/Time Discharge Status Pt. Type Provider Facility Loc./Unit Complaint [id number] 06/06/2018 06:39:00 06/06/2018 23:59:59 CLS Preadmit CELIA ARTEAGA DO [facility] RAD RIGHT LEG PAIN,HX OF STENT [id number] 02/03/2018 11:19:00 02/03/2018 23:59:59 CLS Outpatient CELIA ARTEAGA DO [facility] RAD GENERALIZED ABDOMINAL PAINWORSE IN LLQ [id number] 08/10/2017 13:13:00 08/10/2017 23:59:59 CLS Outpatient FRANCINE VAN APRN [facility] RAD M79.674 [id number] 06/13/2017 11:28:00 06/13/2017 23:59:59 CLS Outpatient ORENDER DO CELIA S [facility] RAD K11.7 G45.9 [id number] 05/16/2017 12:36:00 05/16/2017 23:59:59 CLS Outpatient ORENDER DO CELIA S [facility] RAD K11.7 G45.9 [id number] 04/15/2017 07:42:00 04/15/2017 23:59:59 CLS Preadmit ORENDER DO CELIA S [facility] RAD K11.7 G45.9 [id number] 01/28/2017 20:13:00 01/28/2017 22:29:00 DIS Emergency DANNY REMY, TAMMY Stevens [facility] ER LT FOOT INJURY [id number] 11/12/2016 07:56:00 11/12/2016 10:30:00 DIS Outpatient TRUONG CRUZ MD [facility] ENDO CHANGE IN STOOL CALIBER , HX COLON POLYPS, [id number] 11/10/2016 12:00:00 11/10/2016 12:30:00 DIS Outpatient TRUONG CRUZ MD [facility] PREOP CHANGE IN STOOL CALIBER , HX COLON POLYPS, [id number] 05/15/2016 14:09:00 05/15/2016 16:10:00 DIS Emergency JAQUELINE BRAVO MD [facility] ER CHEST TIGHTNESS [id number] 03/29/2016 07:37:00 03/29/2016 23:59:59 CLS Outpatient ELLIOTNDEMERY ARREGUIN CELIA S [facility] RAD MAMMO SCREENING [id number] 04/04/2015 11:42:00 04/04/2015 23:59:59 CLS Outpatient ORENDER DO, CELIA S [facility] RAD RIGHT LEG CALF PAIN [id number] 04/02/2015 12:59:00 04/02/2015 23:59:59 CLS Outpatient ENRICOEMERY CELIA ARREGUIN [facility] RAD RT AXILLARY MASS [id number] 06/03/2014 11:40:00 06/03/2014 23:59:59 CLS Outpatient JENNIFER MORTON ENTERPRISE MOBILITY ARCHITECT [facility] RAD RT POPITEAL ANYEYRSM, [id number] 05/01/2014 14:37:00 05/01/2014 23:59:59 CLS Outpatient JENNIFER MORTON ENTERPRISE MOBILITY ARCHITECT [facility] RAD SCREENING [id number] 10/05/2013 09:13:00 10/05/2013 14:45:00 DIS Outpatient ARIELA ESCOBAR MD [facility] SDC LESIONS;HISTORY OF POLYPS [id number] 10/03/2013 15:27:00 10/03/2013 23:59:59 CLS Outpatient ARIELA ESCOBAR MD [facility] PREOP SKIN LESIONS; HISTORY OF POLYPS [id number] 06/04/2013 09:56:00 06/04/2013 23:59:59 CLS Outpatient CELIA ARTEAGA DO [facility] RAD PVD [id number] 04/04/2013 10:13:00 04/04/2013 23:59:59 CLS Outpatient CELIA ARTEAGA DO [facility] RAD SCREENING [id number] 05/15/2016 16:11:00 Document Registration [id number] 09/19/2012 09:49:00 Document Registration [id number] 03/29/2012 13:39:00 Document Registration [id number] 02/01/2012 14:57:00 Document Registration [id number] 09/21/2011 10:45:00 Document Registration [id number] 07/13/2011 14:11:00 Document Registration [id number] 03/11/2011 08:47:00 Document Registration [id number] 12/01/2010 13:46:00 Document Registration [id number] 04/04/2015 11:43:21 [place] Document Registration 08/201705/19/2018 23:17:49 05/19/2018 23:59:59 [facility] Outpatient Celia Arteaga [id number] 08/15/2017 19:15:00 08/15/2017 23:59:59 [facility] Outpatient [facility] Arteaga [facility]
[2018-06-09 09:56] LABS: BILIRUBIN,URINE NEGATIVE (NEGATIVE); CLARITY,URINE CLEAR; COLOR,URINE AMBER; GLUCOSE, URINE (UA) NEGATIVE (NEGATIVE); KETONES,URINE 1+ (NEGATIVE); LEUKOCYTE ESTERASE ,URINE 3+ (NEGATIVE); NITRITE,URINE NEGATIVE (NEGATIVE); PH,URINE 5 (5-9); PROTEIN,URINE 2+ (NEGATIVE); UROBILINOGEN,URINE 1 MG/DL (NORMAL)
[2018-06-09 10:03] LABS: BACTERIA,URINE NEGATIVE /HPF; RBC,URINE 0-2 /HPF
[2018-06-09 10:04] LABS: CALCIUM OXALATE CRYSTALS,UR FEW /LPF
[2018-06-09] MEDS ORDERED: NS IV 1000 ML 1,000 ML IV ONE (10:14)
[2018-06-09 10:25] LABS: BASOPHILS % (AUTO) 0 % (0-10); EOSINOPHILS % (AUTO) 0 % (0-10); HEMATOCRIT 38 % (35-52); HEMOGLOBIN 12.4 G/DL (11.5-16.0); LYMPHOCYTES # (AUTO) 1.2 X 10^3 (1.0-4.0); LYMPHOCYTES % (AUTO) 10 % (12-44); MEAN CORPUSCULAR HEMOGLOBIN 31 PG (25-34); MEAN CORPUSCULAR HGB CONC 33 G/DL (32-36); MEAN CORPUSCULAR VOLUME 93 FL (80-99); MEAN PLATELET VOLUME 9.8 FL (7.4-10.4); MONOCYTES # (AUTO) 1.7 X 10^3 (0.0-1.0); MONOCYTES % (AUTO) 14 % (0-12); NEUTROPHILS # (AUTO) 9.3 X 10^3 (1.8-7.8); NEUTROPHILS % (AUTO) 76 % (42-75); PLATELET COUNT 413 10^3/uL (130-400); RED BLOOD COUNT 4.03 10^6/uL (4.35-5.85); RED CELL DISTRIBUTION WIDTH 12.7 % (10.0-14.5); WHITE BLOOD COUNT 12.3 10^3/uL (4.3-11.0)
--- NOTE | 2018-06-09 10:44 | ED General ---
General Chief Complaint: Abdominal/GI Problems Stated Complaint: FALL/L KNEE INJ/ABD PAIN Nursing Triage Note: PATIENT IS HERE FOR COMPLAINTS OF ABDOMINAL PAIN THAT STARTED A FEW DAYS AGO. IT IS PRIMARILY ON THE RIGHT LOWER SIDE BUT DOES RADIATE ACROSS TO THE LEFT SIDE. PATIENT HAS ISSUES WITH CONSTIPATION BUT DID HAVE A SMALL BM YESTERDAY. SHE BELIEVES THAT HER KIDNEYS "ARE NOT WORKING" BECUASE SHE IS DRINKING A LOT OF WATER AND NOT MAKING MUCH URINE. SHE HAS BEEN NAUSEATED AND BARELY ATE YESTERDAY. SHE ENDED UP FAINTING IN THE KITCHEN YESTERDAY. SHE THINKS SHE MAY HAVE HAD A FEVER WELL BECAUSE SHE HAD CHILLS BUT DID NOT TAKE HER TEMPERATURE. Nursing Sepsis Screen: No Definite Risk Source of Information: Patient, Old Records Exam Limitations: No Limitations History of Present Illness Date Seen by Provider: Jun 09, 2018 Time Seen by Provider: 09:42 Initial Comments This 83-year-old woman presents to the emergency room with multiple complaints. She reports not eating well yesterday. She went to the kitchen to make some toast and then woke up on the floor. She believes she had a syncopal episode. She also reports having chills and sweats through the night. She presumes to have had a fever. She is having significant bowel issues since March. She reports alternating between constipation and diarrhea. This has been addressed by Dr. Arteaga with medications but medication therapy does not seem particularly helpful. Patient had colonoscopy and EGD performed in October 2016. Report was reviewed. There was evidence of diverticular disease and a single polyp removed. This was a hyperplastic polyp her pathology report. Patient reports her lower abdominal pain is about 5 or 6 on a 10 point scale. She reports pain with bowel movements recently. She is afebrile at present. Patient states there was a narrowing in her bowel on colonoscopy. However, I did not see this in the colonoscopy report. She reports decreased urine output. Allergies and Home Medications Allergies Coded Allergies: niacin (Unverified Allergy, Severe, 10/03/13) Penicillins (Unverified Allergy, Mild, 01/18/09) codeine (Unverified Allergy, Mild, 01/18/09) nitroglycerin (Unverified Allergy, Mild, 01/18/09) Tetracyclines (Unverified Allergy, Unknown, 10/03/13) clarithromycin (Unverified Allergy, Unknown, 10/03/13) hydroxyzine (Unverified Allergy, Unknown, 10/03/13) metronidazole (Unverified Allergy, Unknown, 10/03/13) tramadol (Unverified Allergy, Unknown, NAUSEA, 10/03/13) Home Medications Cholecalciferol 1,000 Unit Capsule, 1,000 UNIT PO BID, (Reported) Famotidine 20 Mg Tablet, 20 MG PO DAILY, (Reported) Fenofibrate,Micronized 145 Mg Tablet, 145 MG PO DAILY, (Reported) Flaxseed Oil 1,000 Mg Capsule, 1,000 MG PO DAILY, (Reported) Hydrochlorothiazide 12.5 Mg Tablet, 12.5 MG PO DAILY, (Reported) Metoprolol Tartrate 25 Mg Tablet, 25 MG PO BID, (Reported) Senna 1 Ea Tablet, 2 TAB PO BID, (Reported) Patient Home Medication List Home Medication List Reviewed: Yes Review of Systems Review of Systems Constitutional: see HPI EENTM: no symptoms reported Respiratory: no symptoms reported Cardiovascular: see HPI Gastrointestinal: see HPI Genitourinary: see HPI : No Musculoskeletal: no symptoms reported Skin: no symptoms reported Psychiatric/Neurological: No Symptoms Reported Hematologic/Lymphatic: No Symptoms Reported Immunological/Allergic: no symptoms reported Past Wsweika-Aucnij-Pbqjxn Hx Past Med/Social Hx: Reviewed and Corrections made Patient Social History Alcohol Use: Denies Use Recreational Drug Use: No Smoking Status: Never a Smoker 2nd Hand Smoke Exposure: No Recent Foreign Travel: No Contact w/Someone Who Travel: No Recent Infectious Disease Expo: No Recent Hopitalizations: No Seasonal Allergies Seasonal Allergies: Yes Past Medical History Surgeries: Yes (bladder sx, ) Abdominal (colonoscopy and EGD 2016), Appendectomy, Hysterectomy, Tonsillectomy , Vascular Surgery (lower extremity vascular stenting) Respiratory: Yes Pneumonia Cardiac: Yes Hypertension, Peripheral Vascular Neurological: No : No 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 0oz. 69.112055rr; 25.8 BMI Method:Stated General Appearance: No Apparent Distress, WD/WN HEENT: PERRL/EOMI, Normal ENT Inspection Neck: Normal Inspection Respiratory: Lungs Clear, Normal Breath Sounds, No Accessory Muscle Use, No Respiratory Distress Cardiovascular: Regular Rate, Rhythm, No Edema, No Murmur, Normal Peripheral Pulses Gastrointestinal: Normal Bowel Sounds, Soft, Tenderness (across the lower abdomen) Extremity: Normal Inspection, No Pedal Edema Neurologic/Psychiatric: Alert, Oriented x3, No Motor/Sensory Deficits, Normal Mood/Affect, health worker II-XII Norm as Tested Skin: Normal Color, Warm/Dry Progress/Results/Core Measures Suspected Sepsis Recent Fever Within 48 Hours: Yes Infection Criteria Present: Suspected New Infection New/Unexplained Altered Menta: No Sepsis Screen: No Definite Risk SIRS Temperature:97.7 Pulse: 77 Respiratory Rate: 20 Laboratory Tests 06/09/18 10:15: White Blood Count 12.3H Blood Pressure 139 /67 Mean: 91 Laboratory Tests 06/09/18 10:15: Creatinine 0.90, Platelet Count 413H, Total Bilirubin 0.9 Results/Orders Lab Results Laboratory Tests Test 06/09/18 09:51 06/09/18 10:15 Range/Units Urine Color JM H Urine Clarity CLEAR Urine pH 5 5-9 Urine Specific [place] 1.025 H 1.016-1.022 Urine Protein 2+ H NEGATIVE Urine Glucose (UA) NEGATIVE NEGATIVE Urine Ketones 1+ H NEGATIVE Urine Nitrite NEGATIVE NEGATIVE Urine Bilirubin NEGATIVE NEGATIVE Urine Urobilinogen 1 NORMAL MG/DL Urine Leukocyte Esterase 3+ H NEGATIVE Urine RBC (Auto) 2+ H NEGATIVE Urine RBC 0-2 /HPF Urine WBC 10-25 H /HPF Urine Squamous Epithelial Cells 5-10 /HPF Urine Crystals PRESENT H /LPF Urine Calcium Oxalate Crystals FEW H /LPF Urine Bacteria NEGATIVE /HPF Urine Casts PRESENT /LPF Urine Hyaline Casts 10-25 H /LPF Urine Mucus MODERATE H /LPF Urine Culture Indicated YES White Blood Count 12.3 H 4.3-11.0 10^3/uL Red Blood Count 4.03 L 4.35-5.85 10^6/uL Hemoglobin 12.4 11.5-16.0 G/DL Hematocrit 38 35-52 % Mean Corpuscular Volume 93 80-99 FL Mean Corpuscular Hemoglobin 31 25-34 PG Mean Corpuscular Hemoglobin Concent 33 32-36 G/DL Red Cell Distribution Width 12.7 10.0-14.5 % Platelet Count 413 H 130-400 10^3/uL Mean Platelet Volume 9.8 7.4-10.4 FL Neutrophils (%) (Auto) 76 H 42-75 % Lymphocytes (%) (Auto) 10 L 12-44 % Monocytes (%) (Auto) 14 H 0-12 % Eosinophils (%) (Auto) 0 0-10 % Basophils (%) (Auto) 0 0-10 % Neutrophils # (Auto) 9.3 H 1.8-7.8 X 10^3 Lymphocytes # (Auto) 1.2 1.0-4.0 X 10^3 Monocytes # (Auto) 1.7 H 0.0-1.0 X 10^3 Eosinophils # (Auto) 0.0 0.0-0.3 10^3/uL Basophils # (Auto) 0.0 0.0-0.1 10^3/uL Sodium Level 137 135-145 MMOL/L Potassium Level 3.4 L 3.6-5.0 MMOL/L Chloride Level 102 98-107 MMOL/L Carbon Dioxide Level 25 21-32 MMOL/L Anion Gap 10 5-14 MMOL/L Blood Urea Nitrogen 11 7-18 MG/DL Creatinine 0.90 0.60-1.30 MG/DL Estimat Glomerular Filtration Rate 60 BUN/Creatinine Ratio 12 Glucose Level 106 H 70-105 MG/DL Calcium Level 10.1 8.5-10.1 MG/DL Corrected Calcium 9.9 8.5-10.1 MG/DL Magnesium Level 2.3 1.8-2.4 MG/DL Total Bilirubin 0.9 0.1-1.0 MG/DL Aspartate Amino Transf (AST/SGOT) 21 5-34 U/L Alanine Aminotransferase (ALT/SGPT) 12 0-55 U/L Alkaline Phosphatase 68 40-136 U/L Troponin I < 0.30 <0.30 NG/ML C-Reactive Protein High Sensitivity 10.70 H 0.00-0.50 MG/DL Total Protein 7.0 6.4-8.2 GM/DL Albumin 4.2 3.2-4.5 GM/DL My Orders Orders - LARA SWANSON MD Ua Culture If Indicated (06/09/18 09:41) Urine Culture (06/09/18 09:51) Cbc With Automated Diff (06/09/18 10:14) Comprehensive Metabolic Panel (06/09/18 10:14) Magnesium (06/09/18 10:14) Troponin I (06/09/18 10:14) Ekg Tracing (06/09/18 10:14) Saline Lock/Iv-Start (06/09/18 10:14) Ns Iv 1000 Ml (Sodium Chloride 0.9%) (06/09/18 10:14) Hs C Reactive Protein (06/09/18 10:15) Ct Abdomen/Pelvis W (06/09/18 11:05) Iohexol Injection (Omnipaque 350 Mg/Ml 1 (06/09/18 11:15) Contrast Received (Contrast Received) (06/09/18 11:15) Ns (Ivpb) (Sodium Chloride 0.9%) (06/09/18 11:15) Ciprofloxacin Iv 400mg/200ml (Cipro Iv S (06/09/18 12:30) Medications Given in ED Current Medications Medications Dose Ordered Sig/Janina Route Start Time Stop Time Status Last Admin Dose Admin Iohexol 100 ml ONCE ONCE IV 06/09/18 11:15 06/09/18 11:16 DC 06/09/18 11:18 100 ML Sodium Chloride 250 ml ONCE ONCE IV 06/09/18 11:15 06/09/18 11:16 DC 06/09/18 11:19 80 ML Sodium Chloride 1,000 ml @ 0 mls/hr Q0M ONCE IV 06/09/18 10:14 06/09/18 10:17 DC 06/09/18 10:20 0 MLS/HR Vital Signs/I&O 06/09/18 09:40 Temp 97.7 Pulse 77 Resp 20 B/P (MAP) 139/67 (91) Pulse Ox 97 O2 Delivery Room Air Capillary Refill : Less Than 3 Seconds Blood Pressure Mean: 91 Progress Note : Progress Note Urinalysis suggested patient was a bit dry. A liter of IV fluid was infused. CT scan was pursued of the abdomen due to her bowel issues and complaining of possible fever and chills last night. CT revealed diverticulitis of the distal colon without complication. A dose of IV Cipro was administered before dismissal. The cause of her syncope is uncertain. It could be related to hypovolemia and/or vasovagal response and/or hypoglycemia. Follow-up with her primary care provider was recommended. Cipro alone was prescribed for treatment of the diverticulitis because patient has numerous allergies including penicillin, clarithromycin, and Flagyl. ECG Initial ECG Impression Date: Jun 09, 2018 Initial ECG Impression Time: 10:23 Initial ECG Rate: 62 Initial ECG Rhythm: Normal Sinus Comment Sinus rhythm with a chronic right bundle branch block. No ST elevation or depression. LVH by automated read. Compared with prior. No significant change. Diagnostic Imaging Diagonstic Imaging: CT Plain Films/CT/US/NM/MRI: abdomen, pelvis Comments CT abdomen and pelvis viewed by me and report reviewed. See report below: NAME: BRAULIO GONZALEZ MED REC#: [id number] PT STATUS: REG ER : 1935 PHYSICIAN: LARA SWANSON MD ADMIT DATE: 06/09/18/ER Signed Date of Exam: 06/09/18 CT ABDOMEN/PELVIS W PROCEDURE: CT abdomen and pelvis with contrast. TECHNIQUE: Multiple contiguous axial images were obtained through the abdomen and pelvis after administration of intravenous contrast. INDICATION: Abdominal pain. Urinary tract infection. History of appendectomy and hysterectomy. Comparison made with the CT study from 02/03/2018. FINDINGS: The visualized lung bases demonstrates some mild dependent atelectasis and otherwise clear. There is no infiltrate, consolidation or effusion. Cardiomegaly is present. There is no pericardial effusion. The liver demonstrates no evidence of a focal intrahepatic abnormality. The gallbladder is mildly prominent without CT findings of radiodense gallstones or gallbladder wall thickening. Some very slight prominence of the proximal intrahepatic biliary ducts. The common bile duct appears normal in caliber. The pancreas is unremarkable. The spleen appears normal. There is no adrenal mass. There is a simple renal cyst bilaterally. There is a possible nonobstructive calculus within the inferior left kidney. There is no hydronephrosis. Small and large bowel are normal in caliber without evidence of obstruction. There is no abnormal small bowel thickening. There has, however, been interval development of new abnormal thickening and inflammation within the fat around the distal sigmoid colon and proximal rectum where there are multiple diverticula. The findings are most compatible with an acute diverticulitis. There is no evidence of free air. There is no significant free fluid or evidence of a definable abscess. Patient is status post hysterectomy. Urinary bladder is unremarkable. No pathologically enlarged lymph nodes. There are atherosclerotic calcifications within a normal caliber aorta. Multilevel degenerative disc disease and facet arthropathy are present without acute or suspicious osseous abnormality. IMPRESSION: 1. Findings compatible with an acute diverticulitis involving the distal sigmoid colon and proximal rectum. There is adjacent fat stranding and associated colonic thickening but no evidence of free air, free fluid or abscess. There is no bowel obstruction. 2. Mildly prominent appearance of the gallbladder with some very slight unchanged prominence of proximal intrahepatic bile ducts. There are no radiodense gallstones or evidence of thickening of the gallbladder wall or adjacent inflammation. The common bile duct appears normal in caliber. Followup right upper quadrant sonogram could be considered. Dictated by: Dictated on workstation # [id number] Dict: 06/09/18 1134 Trans: 06/09/18 1155 Interpreted by: EBEN GLORIA MD Electronically signed by: EBEN GLORIA MD 06/09/18 1155 Departure Impression Primary Impression: Diverticulitis of intestine Qualified Codes: K57.32 - Diverticulitis of large intestine without perforation or abscess without bleeding Additional Impressions: Urinary tract infection Qualified Codes: N39.0 - Urinary tract infection, site not specified Syncope Qualified Codes: R55 - Syncope and collapse Disposition: 01 HOME, SELF-CARE Condition: Improved Departure-Patient Inst. Decision time for Depature: 12:36 Referrals: TATIANA ARTEAGA DO (PCP/Family) Primary Care Physician Patient Instructions: Diverticulitis (DC), Syncope (Fainting) Add. Discharge Instructions: Consume primarily a liquid diet for the next 24 hours and drink plenty of clear liquids. Then gradually advance your diet with small quantities of bland food as tolerated. Complete your antibiotics as prescribed. Follow-up with Dr. Arteaga early next week. Review urine culture results with her at that time. For pain you may take Tylenol (acetaminophen) up to 1000 mg every 6 hours as needed. Add ibuprofen (Advil) up to 400 mg 3 times daily if needed for additional pain relief. All discharge instructions reviewed with patient and/or family. Voiced understanding. Scripts Ciprofloxacin HCl (Cipro) 500 Mg Tablet 500 MG PO BID, #14 TAB Prov: LARA SWANSON MD 06/09/18 Copy Copies To 1: TATIANA ARTEAGA JOSHUA T MD Jun 09, 2018 10:44
[2018-06-09 10:49] LABS: ALANINE AMINOTRANSFERASE 12 U/L (0-55); ALBUMIN 4.2 GM/DL (3.2-4.5); ALKALINE PHOSPHATASE 68 U/L (40-136); BILIRUBIN,TOTAL 0.9 MG/DL (0.1-1.0); BUN/CREATININE RATIO 12; CALCIUM 10.1 MG/DL (8.5-10.1); CARBON DIOXIDE 25 MMOL/L (21-32); CHLORIDE 102 MMOL/L (98-107); GFR ESTIMATED 60; GLUCOSE 106 MG/DL (70-105); MAGNESIUM 2.3 MG/DL (1.8-2.4); POTASSIUM 3.4 MMOL/L (3.6-5.0); SODIUM 137 MMOL/L (135-145)
[2018-06-09] MEDS ORDERED: RECEIVED CONTRAST (Hold Metformin) IV SCH (11:15)
[2018-06-09] MEDS ORDERED: IOHEXOL 350 MG/ML 100 ML (OMNIPAQUE 350) VIAL IV ONE (11:15)
[2018-06-09] MEDS ORDERED: NS 250 ML (IVPB) BAG IV ONE (11:15)
--- NOTE | 2018-06-09 11:52 | Diagnostic Imaging Report ---
PROCEDURE: CT abdomen and pelvis with contrast. TECHNIQUE: Multiple contiguous axial images were obtained through the abdomen and pelvis after administration of intravenous contrast. INDICATION: Abdominal pain. Urinary tract infection. History of appendectomy and hysterectomy. Comparison made with the CT study from 02/03/2018. FINDINGS: The visualized lung bases demonstrates some mild dependent atelectasis and otherwise clear. There is no infiltrate, consolidation or effusion. Cardiomegaly is present. There is no pericardial effusion. The liver demonstrates no evidence of a focal intrahepatic abnormality. The gallbladder is mildly prominent without CT findings of radiodense gallstones or gallbladder wall thickening. Some very slight prominence of the proximal intrahepatic biliary ducts. The common bile duct appears normal in caliber. The pancreas is unremarkable. The spleen appears normal. There is no adrenal mass. There is a simple renal cyst bilaterally. There is a possible nonobstructive calculus within the inferior left kidney. There is no hydronephrosis. Small and large bowel are normal in caliber without evidence of obstruction. There is no abnormal small bowel thickening. There has, however, been interval development of new abnormal thickening and inflammation within the fat around the distal sigmoid colon and proximal rectum where there are multiple diverticula. The findings are most compatible with an acute diverticulitis. There is no evidence of free air. There is no significant free fluid or evidence of a definable abscess. Patient is status post hysterectomy. Urinary bladder is unremarkable. No pathologically enlarged lymph nodes. There are atherosclerotic calcifications within a normal caliber aorta. Multilevel degenerative disc disease and facet arthropathy are present without acute or suspicious osseous abnormality. IMPRESSION: 1. Findings compatible with an acute diverticulitis involving the distal sigmoid colon and proximal rectum. There is adjacent fat stranding and associated colonic thickening but no evidence of free air, free fluid or abscess. There is no bowel obstruction. 2. Mildly prominent appearance of the gallbladder with some very slight unchanged prominence of proximal intrahepatic bile ducts. There are no radiodense gallstones or evidence of thickening of the gallbladder wall or adjacent inflammation. The common bile duct appears normal in caliber. Followup right upper quadrant sonogram could be considered. Dictated by: Dictated on workstation # [id number]
[2018-06-09] MEDS ORDERED: CIPROFLOXACIN IV 400MG/200ML 200 ML IV ONE (12:30)
[2018-06-09] MEDS ORDERED: CIPR-225 PO (12:42)
[2018-06-09 13:09] VITALS: BP 139/67
== END 2018-06-09 13:48 | disposition home or self-care (01) ==
LOC: EDUNIT# 09:34 → ER 09:36
DX: K57.32 Diverticulitis of large intestine without perforation or abscess without bleeding (principal); N39.0 Urinary tract infection, site not specified; R55 Syncope and collapse; I10 Essential (primary) hypertension; I73.9 Peripheral vascular disease, unspecified; Z87.19 Personal history of other diseases of the digestive system; Z88.0 Allergy status to penicillin; Z88.5 Allergy status to narcotic agent; Z88.1 Allergy status to other antibiotic agents; Z88.8 Allergy status to other drugs, medicaments and biological substances; Z88.6 Allergy status to analgesic agent; Z86.010 Personal history of colon polyps; Z90.49 Acquired absence of other specified parts of digestive tract; Z98.890 Other specified postprocedural states; Z90.710 Acquired absence of both cervix and uterus; Z90.89 Acquired absence of other organs; Z87.01 Personal history of pneumonia (recurrent)
CPT/HCPCS: 36415; 74177; 80053; 81000; 83735; 84484; 85025; 86141; 87088; 93005

== ENCOUNTER → 2018-06-15 | Outpatient (CLI) | payer MEDICARE ==
[~2018-06-15] MED LIST changes: +CIPR-225 PO
--- NOTE | 2018-06-15 17:57 | Diagnostic Imaging Report ---
INDICATION: Right leg pain. Right leg arterial Doppler study is performed in the routine fashion with color-flow Doppler and waveform analysis. The right common femoral artery, profunda femoris artery, SFA, and popliteal artery are all patent with triphasic flow. The posterior tibial artery, anterior tibial artery, and dorsalis pedis are patent with biphasic flow. There is biphasic flow visualized within the patient's right popliteal artery stent. There is no significant velocity elevation or focal stenosis or occlusion. IMPRESSION: Patent stent in right proximal artery. No focal high velocity jets to suggest significant stenosis. No occluded segments. Dictated by: Dictated on workstation # [id number]
== END ==
LOC: RAD 14:04
PROVIDERS: ATTEND Family Medicine
DX: M79.604 Pain in right leg (principal); Z95.828 Presence of other vascular implants and grafts
CPT/HCPCS: 93926

== ENCOUNTER 2019-03-06 18:27 | Emergency (ER) | payer MEDICARE ==
[~2019-03-06] VITALS: Ht 167.6 cm; Wt 72.1 kg
--- NOTE | 2019-03-06 19:00 | NUR ---
REPORT GIVEN TO Enrrique WOODS.
--- NOTE | 2019-03-06 19:38 | Diagnostic Imaging Report ---
PROCEDURE: CT head and maxillofacial without contrast. TECHNIQUE: Multiple contiguous axial images were obtained through the head and facial bones without the use of intravenous contrast. Auto Exposure Controls were utilized during the CT exam to meet ALARA standards for radiation dose reduction. INDICATION: Fall. Head and face injury. COMPARISON: None. CT HEAD: There is a trace subarachnoid hemorrhage in the right posterior lateral parietal lobe. There is no associated midline shift or mass effect. There is no extra-axial fluid collection. No interventricular hemorrhage is seen. The ventricular size is normal. There is a lacunar infarct associated with the right caudate nucleus, likely chronic. There is no large area or territorial ischemia. There is no skull fracture. IMPRESSION: Small subarachnoid hemorrhage in the right posterior parietal lobe without midline shift or mass effect. CT FACE: Left maxillary wall fractures are present. There is a minimally displaced fracture of the inferolateral and anterior maxillary sinus wall. There is a nondisplaced infraorbital wall fracture. There is hemorrhage seen within the left maxillary cavity. There is a nondisplaced left zygomatic arch fracture. The nasal bone and nasal septum are intact. The globes are grossly unremarkable. The visualized mandible and pterygoid plates appear intact. IMPRESSION: 1. Nondisplaced left inferior orbital wall fracture. 2. Complex maxillary sinus wall fractures. 3. Nondisplaced left zygomatic arch fracture. CRITICAL FINDINGS Report given to LYNDA Russell at 7:37 p.m. 03/06/2019/samara Dictated by: Dictated on workstation # [id number]
--- NOTE | 2019-03-06 19:46 | Diagnostic Imaging Report ---
INDICATION: Left knee injury. COMPARISON: None. FINDINGS: Three views of the left knee demonstrate no fracture or dislocation. There is an osteophyte projecting off the superior aspect of the patella. There is no joint effusion. Minimal degenerative changes are present. IMPRESSION: No fracture or dislocation. Dictated by: Dictated on workstation # [id number]
--- NOTE | 2019-03-06 19:51 | ED Trauma-Multisystem ---
General Chief Complaint: Trauma-Non Activation Stated Complaint: FALL/HEAD INJ/NOSE BLEED Nursing Triage Note: TO TRIAGE VIA AMB. STATES SHE WAS TALKING AND TRIPPED OVER A STEP CAUSING HER TO FALL AND HIT HER HEAD AND FACE. DENIES LOC OR NECK PAIN. COMPLAINS OF LEFT EYE SOCKET PAIN AND LEFT FACE PAIN BEING HER MAIN COMPLAINTS. DENIES BEING ON BLOOD THINNER. PT HAS A BLOODY NOSE, SWELLING AND BRUISING UNDER LEFT EYE AND ABRASION TO RIGHT ELBOW AND KNEE. History of Present Illness Date Seen by Provider: Mar 07, 2019 Time Seen by Provider: 18:40 Initial Comments 83-year-old female presents after a fall at home. She tripped on a step falling forward landing on bilateral knees, right elbow and striking her left eye. She denies any vision changes. No neck injury or loss of consciousness. She's had no nausea or vomiting injury. She is current on her tetanus vaccine receiving in the last 2-3 years. Occurred: Just Prior to Arrival Method of Injury: Fall Loss of Consciousness: No Loss of Consciousness Associated Symptoms (Fall): No Abdominal Pain, No Chest Pain, No Confusion, No Dizziness; Headache; No Lightheadedness, No Muscle Spasms, No Neck Pain, No Ringing in Ears, No Shortness of Air, No Slurred Speech, No Trouble Walking, No Vision Changes; Other (left dre-orbital pain. ) Allergies and Home Medications Allergies Coded Allergies: niacin (Unverified Allergy, Severe, 10/03/13) Penicillins (Unverified Allergy, Mild, 01/18/09) codeine (Unverified Allergy, Mild, 01/18/09) nitroglycerin (Unverified Allergy, Mild, 01/18/09) Tetracyclines (Unverified Allergy, Unknown, 10/03/13) clarithromycin (Unverified Allergy, Unknown, 10/03/13) hydroxyzine (Unverified Allergy, Unknown, 10/03/13) metronidazole (Unverified Allergy, Unknown, 10/03/13) tramadol (Unverified Allergy, Unknown, NAUSEA, 10/03/13) Home Medications Cephalexin 500 Mg Tablet, 500 MG PO Q8H Prescribed by: SANDIP DELCID on 03/06/192028 Cholecalciferol 1,000 Unit Capsule, 1,000 UNIT PO BID, (Reported) Ciprofloxacin HCl 500 Mg Tablet, 500 MG PO BID Prescribed by: LARA CATHERINE on 06/09/18 1242 Famotidine 20 Mg Tablet, 20 MG PO DAILY, (Reported) Fenofibrate,Micronized 145 Mg Tablet, 145 MG PO DAILY, (Reported) Hydrochlorothiazide 12.5 Mg Tablet, 12.5 MG PO DAILY, (Reported) Hydrocodone Bit/Acetaminophen 1 Tab Tab, 1 EACH PO Q4-6HR PRN for PAIN-MODERATE Prescribed by: SANDIP DELCID on 03/06/192026 Metoprolol Tartrate 25 Mg Tablet, 25 MG PO BID, (Reported) Patient Home Medication List Home Medication List Reviewed: Yes Review of Systems Review of Systems Constitutional: no symptoms reported, see HPI Eyes: See HPI, Pain, Other (ecchymosis right) Ears: No Symptoms Reported, See HPI Nose: See HPI, Bloody Discharge; No Congestion; Pain Mouth: No Symptoms Reported, See HPI Musculoskeletal: see HPI, joint pain (bilateral knee pain and right elbow pain) All Other Systems Reviewed Negative Unless Noted: Yes Past Umoktur-Kezlhl-Kuqxkt Hx Past Med/Social Hx: Reviewed Nursing Past Med/Soc Hx Patient Social History Alcohol Use: Denies Use Recreational Drug Use: No Smoking Status: Never a Smoker 2nd Hand Smoke Exposure: No Recent Foreign Travel: No Contact w/Someone Who Travel: No Recent Infectious Disease Expo: No Recent Hopitalizations: No Seasonal Allergies Seasonal Allergies: Yes Past Medical History Surgeries: Yes (bladder sx, ) Abdominal, Appendectomy, Hysterectomy, Tonsillectomy, Vascular Surgery Respiratory: Yes Pneumonia Cardiac: Yes Hypertension, Peripheral Vascular Neurological: No Reproductive Disorders: No HAND BULLDOZER History: Hysterectomy Genitourinary: No Gastrointestinal: Yes Diverticulosis, Polyps, Irritable Bowel Musculoskeletal: No Endocrine: No Cancer: No Psychosocial: No Integumentary: No Blood Disorders: No Physical Exam Vital Signs Vital Signs - First Documented 03/06/19 18:38 Temp 98.0 Pulse 92 Resp 16 B/P (MAP) 177/98 (124) Pulse Ox 96 O2 Delivery Room Air Height, Weight, BMI Height: 5'6.00" Weight: 159lbs. 0oz. 72.962030ke; 25.8 BMI Method:Stated General Appearance: No Apparent Distress, WD/WN Head: Ecchymosis (left periorbital), Swelling, Tenderness Eyes: Bilateral Eye Normal Inspection, Bilateral Eye PERRL, Bilateral Eye EOMI Ears, Nose, Throat: Hearing Grossly Normal, No Evidence of ENT Injury, No Dental Injury; No Clear Fluid (Ears), No Clear Fluid (Nose), No Hemotympanum, No Midface Instability, No Dental Injury Neck: Full Range of Motion, Normal Inspection, Non Tender, Supple Cardiovascular: Regular Rate, Rhythm, No Edema, Normal Peripheral Pulses Respiratory: Chest Non Tender, Lungs Clear, Normal Breath Sounds Gastrointestinal: Normal Bowel Sounds, Non Tender, Soft Extremity: Normal Capillary Refill, Normal Range of Motion, Non Tender (trace tenderness with superficial abrasions to the right elbow and bilateral knees.), No Pedal Edema; No Calf Tenderness; Pelvis Stable Neurologic/Psychiatric: Alert, Oriented x3, No Motor/Sensory Deficits, Normal Mood/Affect Progress/Results/Core Measures Results/Orders My Orders Orders - SANDIP DELCID Ct Head/Maxillofacial Wo (03/06/19 18:53) Elbow, Right, 3 Views (03/06/19 19:00) Knee, Left, 3 Views (03/06/19 19:00) Knee, Right, 3 Views (03/06/19 19:00) Rx-Hydrocodone/Apap 5-325 Mg (Rx-Vicodin (03/06/19 20:30) Cephalexin Capsule (Keflex Capsule) (03/06/19 20:30) Medications Given in ED Current Medications Medications Dose Ordered Sig/Janina Route Start Time Stop Time Status Last Admin Dose Admin Acetaminophen/ Hydrocodone Bitart 1 ea Q6H PRN PO 03/06/19 20:30 03/06/19 20:42 DC 03/06/19 20:35 1 EA Cephalexin HCl 500 mg ONCE ONCE PO 03/06/19 20:30 03/06/19 20:31 DC 03/06/19 20:35 500 MG Vital Signs/I&O 03/06/19 03/06/19 18:38 20:38 Temp 98.0 98.0 Pulse 92 92 Resp 16 16 B/P (MAP) 177/98 (124) 177/98 (124) Pulse Ox 96 96 O2 Delivery Room Air Blood Pressure Mean: 124 Progress Progress Note : Time: 18:40 Progress Note Patient seen and evaluated declined need for pain medicine at this time. Ice pack to left eye. Will obtain CT head and orbits, x-ray knees and right elbow. 1929 Facial fractures reviewed. Discussed with patient. She would prefer to see Dr. Wiley. Contacted to Dr. Wiley, he will see patient on , Keflex Rx recommended. 2019 wounds to knees and right elbow cleansed with sterile saline and triple antibiotic applied with a Band-Aid. Discharge instructions and return precautions reviewed with the patient. She declined need for pain medicine, she feels more comfortable taking extra strength Tylenol. She declined need for sling to right arm. Diagnostic Imaging Diagonstic Imaging: CT Plain Films/CT/US/NM/MRI: facial bones, head Comments NAME: BRAULIO GONZALEZ MED REC#: [id number] PT STATUS: REG ER : 1935 PHYSICIAN: SANDIP DELCID ADMIT DATE: 03/06/19/ER Draft Date of Exam:03/06/19 CT HEAD/MAXILLOFACIAL WO PROCEDURE: CT head and maxillofacial without contrast. TECHNIQUE: Multiple contiguous axial images were obtained through the head and facial bones without the use of intravenous contrast. Auto Exposure Controls were utilized during the CT exam to meet ALARA standards for radiation dose reduction. INDICATION: Fall. Head and face injury. COMPARISON: None. CT HEAD: There is a trace subarachnoid hemorrhage in the right posterior lateral parietal lobe. There is no associated midline shift or mass effect. There is no extra-axial fluid collection. No interventricular hemorrhage is seen. The ventricular size is normal. There is a lacunar infarct associated with the right caudate nucleus, likely chronic. There is no large area or territorial ischemia. There is no skull fracture. IMPRESSION: Small subarachnoid hemorrhage in the right posterior parietal lobe without midline shift or mass effect. CT FACE: Left maxillary wall fractures are present. There is a minimally displaced fracture of the inferolateral and anterior maxillary sinus wall. There is a nondisplaced infraorbital wall fracture. There is hemorrhage seen within the left maxillary cavity. There is a nondisplaced left zygomatic arch fracture. The nasal bone and nasal septum are intact. The globes are grossly unremarkable. The visualized mandible and pterygoid plates appear intact. IMPRESSION: 1. Nondisplaced left inferior orbital wall fracture. 2. Complex maxillary sinus wall fractures. 3. Nondisplaced left zygomatic arch fracture. CRITICAL FINDINGS Report given to LYNDA Russell at 7:37 p.m. 03/06/2019/cb Reviewed: Reviewed by Me Diagonstic Imaging: Xray Plain Films/CT/US/NM/MRI: knee Comments NAME: BRAULIO GONZALEZ [facility] REC#: [id number] PT STATUS: REG ER : 1935 PHYSICIAN: SANDIP DELCID ADMIT DATE: 03/06/19/ER Draft Date of Exam:03/06/19 KNEE, RIGHT, 3 VIEWS INDICATION: Right knee injury COMPARISON: None FINDINGS: 3 views of the right knee demonstrate trace suprapatellar joint effusion with minimal tricompartment degenerative joint disease. There is no underlying fracture or dislocation. Popliteal stent is in place. IMPRESSION: Degenerative changes with trace joint effusion. No fracture. Dictated on workstation # [id number] Dict: 03/06/191943 Trans: 03/06/191948 [facility] [id number] Interpreted by: ZULMA GALLEGO Electronically signed by: Reviewed: Reviewed by [place] Diagonstic Imaging: Xray Plain Films/CT/US/NM/MRI: knee Comments NAME: BRAULIO GONZALEZ [facility] REC#: [id number] PT STATUS: REG ER : 1935 PHYSICIAN: SANDIP DELCID ADMIT DATE: 03/06/19/ER Draft Date of Exam:03/06/19 KNEE, LEFT, 3 VIEWS INDICATION: Left knee injury. COMPARISON: None. FINDINGS: Three views of the left knee demonstrate no fracture or dislocation. There is an osteophyte projecting off the superior aspect of the patella. There is no joint effusion. Minimal degenerative changes are present. IMPRESSION: No fracture or dislocation. Dictated on workstation # [id number] Dict: 03/06/191942 Trans: 03/06/191944 [id number] Interpreted by: ZULMA GALLEGO Electronically signed by: Reviewed: Reviewed by [place] Diagonstic Imaging: Xray Comments NAME: BRAULIO GONZALEZ MED REC#: [id number] PT STATUS: REG ER : 1935 PHYSICIAN: SANDIP DELCID ADMIT DATE: 03/06/19/ER Draft Date of Exam:03/06/19 ELBOW, RIGHT, 3 VIEWS INDICATION: Right elbow injury. COMPARISON: None. FINDINGS: Three views of the right elbow demonstrate some lucencies of the medial humeral condyle. These are likely artifacts. There is no joint effusion. The visualized radial head is intact. Proximal ulna is unremarkable. IMPRESSION: Lucencies of the medial humeral condyle. Follow-up is recommended to exclude fracture; however, these are likely artifacts. Dictated on workstation # [id number] Dict: 03/06/191942 Trans: 03/06/191953 [id number] Interpreted by: ZULMA GALLEGO Electronically signed by: Reviewed: Reviewed by Me Departure Impression Primary Impression: Facial fracture due to fall Qualified Codes: S02.92XA - Unspecified fracture of facial bones, initial encounter for closed fracture; W19.XXXA - Unspecified fall, initial encounter Additional Impressions: Fall Qualified Codes: W19.XXXA - Unspecified fall, initial encounter Multiple contusions Disposition: HOME, SELF-CARE Condition: Improved Departure-Patient Inst. Decision time for Depature: 20:20 Referrals: TATIANA WASHINGTON DO (PCP/Family) Primary Care Physician Patient Instructions: Contusion (DC), Skull and Facial Fractures (DC) Add. Discharge Instructions: Follow up with Dr. Shine Torres at 3:00 pm. Follow-up with your primary care provider if symptoms are not improving or wor sen. Sling to right arm, as needed. Ice to left cheek and eye, bilateral knees and right elbow 20 minutes every 2 hours while awake. You may alternate between ibuprofen 600 mg and Tylenol 650 mg every 4 hours for pain. Use Hydrocodone for more significant pain. Return to emergency department for new, urgent health care needs. All discharge instructions reviewed with patient and/or family. Voiced understanding. Scripts Cephalexin (Cephalexin) 500 Mg Tablet 500 MG PO Q8H, #20 TAB 0 Refills Prov: SANDIP DELCID 03/06/19 Hydrocodone Bit/Acetaminophen (Hydrocodone/Acetaminophen 5/325mg Tablet) 1 Tab Tab 1 EACH PO Q4-6HR PRN for PAIN-MODERATE MDD 10, #20 TAB 0 Refills Prov: SANDIP DELCID 03/06/19 Copy Copies To 1: CHARLIE WILEY DDS; TATIANA WASHINGTON AMY ARNP Mar 06, 2019 19:51
--- NOTE | 2019-03-06 19:55 | Diagnostic Imaging Report ---
INDICATION: Right elbow injury. COMPARISON: None. FINDINGS: Three views of the right elbow demonstrate some lucencies of the medial humeral condyle. These are likely artifacts. There is no joint effusion. The visualized radial head is intact. Proximal ulna is unremarkable. IMPRESSION: Lucencies of the medial humeral condyle. Follow-up is recommended to exclude fracture; however, these are likely artifacts. Dictated by: Dictated on workstation # [id number]
[2019-03-06] MEDS ORDERED: ACHD5005 PO (20:27)
[2019-03-06] MEDS ORDERED: CEPH500T PO (20:29)
[2019-03-06] MEDS ORDERED: CEPHALEXIN 250 MG (KEFLEX) CAP PO ONE (20:30)
[2019-03-06] MEDS: RX-HYDROCODONE/APAP 5/325 MG #4 TAB PK PO PRN ×2 (20:35→20:40)
[2019-03-06 20:38] VITALS: BP 177/98
== END 2019-03-06 20:38 | disposition home or self-care (01) ==
LOC: EDUNIT# 18:27 → ER 18:28
DX: S02.82XA Fracture of other specified skull and facial bones, left side, initial encounter for closed fracture (principal); S02.40FA Zygomatic fracture, left side, initial encounter for closed fracture; S02.40DA Maxillary fracture, left side, initial encounter for closed fracture; S05.8X2A Other injuries of left eye and orbit, initial encounter; S50.311A Abrasion of right elbow, initial encounter; S80.211A Abrasion, right knee, initial encounter; I10 Essential (primary) hypertension; I73.9 Peripheral vascular disease, unspecified; K58.9 Irritable bowel syndrome, unspecified; Z86.010 Personal history of colon polyps; Z87.01 Personal history of pneumonia (recurrent); Z87.19 Personal history of other diseases of the digestive system; Z88.8 Allergy status to other drugs, medicaments and biological substances; Z88.5 Allergy status to narcotic agent; Z88.6 Allergy status to analgesic agent; Z90.49 Acquired absence of other specified parts of digestive tract; Z90.710 Acquired absence of both cervix and uterus; Z90.89 Acquired absence of other organs; W01.198A Fall on same level from slipping, tripping and stumbling with subsequent striking against other object, initial encounter; Y92.009 Unspecified place in unspecified non-institutional (private) residence as the place of occurrence of the external cause
CPT/HCPCS: 70450; 70486; 73080; 73562

== ENCOUNTER → 2020-04-03 | Outpatient (CLI) | payer MEDICARE ==
[~2020-04-03] MED LIST changes: +ACHD5005 PO; +CEPH500T PO
--- NOTE | 2020-04-03 15:09 | Diagnostic Imaging Report ---
PROCEDURE: US right lower extremity venous. TECHNIQUE: Multiple real-time grayscale images were obtained over the right lower extremity in various projections. Additional spectral analysis and color Doppler duplex images were also obtained. INDICATION: Right leg pain. FINDINGS: Unilateral right lower extremity femoropopliteal deep venous exam was normal. There is normal color flow, normal compressibility, and normal waveforms. No deep or superficial venous thrombus. IMPRESSION: Normal negative unilateral right lower extremity venous Doppler and ultrasound exam. Dictated by: Dictated on workstation # [id number]
== END ==
LOC: RAD 11:03
PROVIDERS: ATTEND Family Medicine
DX: M25.561 Pain in right knee (principal); Z86.79 Personal history of other diseases of the circulatory system

== ENCOUNTER 2021-10-10 10:39 | Emergency (ER) | payer MEDICARE ==
[~2021-10-10] VITALS: Ht 167 cm; Wt 68.0 kg
[2021-10-10] MEDS ORDERED: ASPIRIN 81 MG CHEW (CHILDREN'S ASA) PO ONE (11:00)
--- NOTE | 2021-10-10 11:09 | ED Chest Pain ---
General Chief Complaint: Chest Pain Stated Complaint: CP Nursing Triage Note: ARRIVED VIA WC TO ROOM 02 WTIH UPPERGASTRIC/CHEST PAIN STARTING THIS AM AFTER BREAKFAST. Source: patient Exam Limitations: no limitations (KRYSTIN HEATON APRN) History of Present Illness Date Seen by Provider: Oct 10, 2021 Time Seen by Provider: 11:06 Initial Comments To ER with a tight ball of epigastric pain and tenderness to palpation that began at about 8 AM this morning after having some toast and juice for breakfast. No shortness of breath no diaphoresis. It was very intense and she went to [facility] walk-in clinic before being referred here. No history of coronary disease and no history of coronary stenting. At the time of my exam at 11:00 she states the pain is almost completely gone at this point. Timing/Duration: 1-3 hours Severity/Quality: severe Location: central Radiation: no radiation Activities at Onset: none Prior CP/Workup: no prior chest pain ASA po SEWAGE PLANT OPERATOR: No NTG SL SEWAGE PLANT OPERATOR: No (KRYSTIN HEATON APRN) Allergies and Home Medications Allergies Coded Allergies: niacin (Unverified Allergy, Severe, 10/03/13) Penicillins (Unverified Allergy, Mild, 01/18/09) codeine (Unverified Allergy, Mild, 01/18/09) nitroglycerin (Unverified Allergy, Mild, 01/18/09) Tetracyclines (Unverified Allergy, Unknown, 10/03/13) clarithromycin (Unverified Allergy, Unknown, 10/03/13) hydroxyzine (Unverified Allergy, Unknown, 10/03/13) metronidazole (Unverified Allergy, Unknown, 10/03/13) tramadol (Unverified Allergy, Unknown, NAUSEA, 10/03/13) Patient Home Medication List Home Medication List Reviewed: Yes (KRYSTIN HEATON APRN) Cephalexin (Cephalexin) 500 Mg Tablet, 500 MG PO Q8H Prescribed by: SANDIP DELCID on 03/06/192028 Cholecalciferol (Vitamin D3) 1,000 Unit Capsule, 1,000 UNIT PO BID, (Reported) Entered as Reported by: ALSISON BELL on 10/04/13 2265 Ciprofloxacin HCl (Cipro) 500 Mg Tablet, 500 MG PO BID Prescribed by: LARA CATHERINE on 06/09/18 1242 Famotidine (Acid Hatch Tender (FAMOTIDINE)) 20 Mg Tablet, 20 MG PO DAILY, (Reported) Entered as Reported by: ALISSON BELL on 11/10/16 1215 Fenofibrate,Micronized (Tricor) 145 Mg Tablet, 145 MG PO DAILY, (Reported) Entered as Reported by: ALISSON BELL on 10/04/13 0755 Hydrochlorothiazide (Hydrochlorothiazide) 12.5 Mg Tablet, 12.5 MG PO DAILY, (Reported) Entered as Reported by: ALISSON BELL on 11/10/16 1215 Hydrocodone Bit/Acetaminophen (Lortab 5 Mg Tablet) 1 Tab Tab, 1 EACH PO Q4-6HR PRN for PAIN-MODERATE Prescribed by: SANDIP DELCID on 03/06/192026 Metoprolol Tartrate (Metoprolol Tartrate 25 Mg) 25 Mg Tablet, 25 MG PO BID, (Reported) Entered as Reported by: ALISSON BELL on 10/04/13 0755 Review of Systems Review of Systems Constitutional: see HPI EENTM: No Symptoms Reported Respiratory: No Symptoms Reported Cardiovascular: No Symptoms Reported Gastrointestinal: See HPI, Abdominal Pain; Denies Diarrhea, Denies Nausea Genitourinary: No Symptoms Reported Musculoskeletal: no symptoms reported Skin: no symptoms reported Psychiatric/Neurological: No Symptoms Reported Endocrine: No Symptoms Reported Hematologic/Lymphatic: No Symptoms Reported (KRYSTIN HEATON APRN) Past Qyduwmy-Txeudv-Nrikrj Hx Patient Social History Smoking Status: Never a Smoker Substance use?: No Alcohol Use?: No (KRYSTIN HEATON APRN) Immunizations Up To Date Third COVID19 Vaccination Date: UNKNOWN DATE COVID19 Vaccine Director Experimental Medicine: REAL (KRYSTIN HEATON APRN) Seasonal Allergies Seasonal Allergies: Yes (KRYSTIN HEATON APRN) Past Medical History Surgeries: Yes (bladder sx, ) Abdominal, Appendectomy, Hysterectomy, Tonsillectomy, Vascular Surgery Respiratory: Yes Pneumonia Cardiac: Yes Hypertension, Peripheral Vascular Neurological: No 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 0oz. 72.753272bk; 24.00 BMI Method:Stated General Appearance: No Apparent Distress, WD/WN, Other (Alert and oriented. Well-appearing very pleasant no distress. She has no tenderness to palpation currently but states that it was very tender when this was at its peak. It was constant from 8 AM to 11 AM.) Neck: Full Range of Motion, Normal Inspection Respiratory: No Accessory Muscle Use, No Respiratory Distress Cardiovascular: Regular Rate, Rhythm Gastrointestinal: Normal Bowel Sounds, Non Tender, Soft Extremity: Normal Capillary Refill, Normal Inspection Neurologic/Psychiatric: Alert, Oriented x3 Skin: Normal Color, Warm/Dry (KRYSTIN HEATON APRN) Progress/Results/Core Measures Results/Orders Lab Results Laboratory Tests Test 10/10/21 11:12 Range/Units White Blood Count 10.3 4.3-11.0 10^3/uL Red Blood Count 4.24 3.80-5.11 10^6/uL Hemoglobin 13.2 11.5-16.0 g/dL Hematocrit 40 35-52 % Mean Corpuscular Volume 93 80-99 fL Mean Corpuscular Hemoglobin 31 25-34 pg Mean Corpuscular Hemoglobin Concent 33 32-36 g/dL Red Cell Distribution Width 12.3 10.0-14.5 % Platelet Count 383 130-400 10^3/uL Mean Platelet Volume 9.5 9.0-12.2 fL Immature Granulocyte % (Auto) 0 % Neutrophils (%) (Auto) 80 H 42-75 % Lymphocytes (%) (Auto) 9 L 12-44 % Monocytes (%) (Auto) 8 0-12 % Eosinophils (%) (Auto) 3 0-10 % Basophils (%) (Auto) 1 0-10 % Neutrophils # (Auto) 8.2 H 1.8-7.8 10^3/uL Lymphocytes # (Auto) 1.0 1.0-4.0 10^3/uL Monocytes # (Auto) 0.8 0.0-1.0 10^3/uL Eosinophils # (Auto) 0.3 0.0-0.3 10^3/uL Basophils # (Auto) 0.1 0.0-0.1 10^3/uL Immature Granulocyte # (Auto) 0.0 0.0-0.1 10^3/uL Prothrombin Time 13.6 12.2-14.7 SEC INR Comment 1.0 0.8-1.4 Activated Partial Thromboplast Time 37 H 24-35 SEC Sodium Level 142 135-145 MMOL/L Potassium Level 3.9 3.6-5.0 MMOL/L Chloride Level 105 98-107 MMOL/L Carbon Dioxide Level 25 21-32 MMOL/L Anion Gap 12 5-14 MMOL/L Blood Urea Nitrogen 17 7-18 MG/DL Creatinine 0.76 0.60-1.30 MG/DL Estimat Glomerular Filtration Rate 75 BUN/Creatinine Ratio 22 Glucose Level 170 H 70-105 MG/DL Calcium Level 10.6 H 8.5-10.1 MG/DL Corrected Calcium 10.6 H 8.5-10.1 MG/DL Magnesium Level 2.0 1.6-2.4 MG/DL Total Bilirubin 1.0 0.1-1.0 MG/DL Aspartate Amino Transf (AST/SGOT) 172 H 5-34 U/L Alanine Aminotransferase (ALT/SGPT) 70 H 0-55 U/L Alkaline Phosphatase 132 40-136 U/L Myoglobin 45.9 10.0-92.0 NG/ML Troponin I < 0.028 <0.028 NG/ML B-Type Natriuretic Peptide 90.5 <100.0 PG/ML Total Protein 6.7 6.4-8.2 GM/DL Albumin 4.0 3.2-4.5 GM/DL (LARA SWANSON MD) Medications Given in ED Current Medications Medications Dose Ordered Sig/Janina Route Start Time Stop Time Status Last Admin Dose Admin Aspirin 324 mg ONCE ONCE PO 10/10/21 11:00 10/10/21 11:01 DC 10/10/21 11:08 324 MG (LARA SWANSON MD) Vital Signs/I&O 10/10/21 10/10/21 10:49 12:14 Temp 36.3 Pulse 71 68 Resp 16 16 B/P (MAP) 147/80 (102) 151/65 Pulse Ox 97 98 O2 Delivery Room Air Room Air (LARA SWANSON MD) Blood Pressure Mean: 102 Departure Communication (Admissions) Family Conversation 1209-still asymptomatic. Troponin negative despite 3 hours of constant pain. Will discharge to home. Her pain is more consistent with a gas pain or biliary colic. She will return to ER for any recurrent symptoms and she will follow up with Dr. WASHINGTON next week. NAME: BRAULIO GONZALEZ MED REC#: [id number] PT STATUS: REG ER : 1935 PHYSICIAN: KRYSTIN HEATON APRN ADMIT DATE: 10/10/21/ER Draft Date of Exam:10/10/21 CHEST 1 VIEW, AP/PA ONLY INDICATION: Epigastric/chest pain starting earlier this morning after breakfast.. TECHNIQUE: Single view chest 11:11 AM. CORRELATION STUDY: 05/15/2016 FINDINGS: Heart size remains mildly prominent and relatively stable. Vasculature is also slightly increased but without overt failure. The lungs are clear with no consolidating infiltrate. There is no significant effusion or pneumothorax. IMPRESSION: 1. Heart size and vasculature appear borderline but without evidence for overt failure. No pulmonary infiltrate. Dictated on workstation # [id number] Dict: 10/10/21 1131 Trans: 10/10/21 1137 [facility] [id number] Interpreted by: SKYLER TOWNSEND DO Electronically signed by: (KRYSTIN HEATON APRN) Impression Primary Impression: Epigastric abdominal pain Disposition: 01 HOME, SELF-CARE Condition: Stable Departure-Patient Inst. Decision time for Depature: 12:01 (KRYSTIN HEATON APRN) Referrals: TATIANA WASHINGTON DO (PCP/Family) Primary Care Physician Patient Instructions: Gastritis ED ATTENDING PHYSICIAN NOTE: I was physically present as attending physician in the emergency department during the care of this patient, but I was not directly involved in the decision making or delivery of care for this patient. (LARA SWANSON MD) Copy Copies To 1: TATIANA WASHINGTON PETER J APRN Oct 10, 2021 11:09 LARA SWANSON MD Oct 10, 2021 19:07
[2021-10-10] MEDS ORDERED: ANTACID SUSP 30 ML UDC (MYLANTA) PO ONE (11:15)
[2021-10-10] MEDS ORDERED: LIDOCAINE 2% VISCOUS 15 ML UDC PO ONE (11:15)
[2021-10-10 11:19] LABS: BASOPHILS # (AUTO) 0.1 10^3/uL (0.0-0.1); BASOPHILS % (AUTO) 1 % (0-10); EOSINOPHILS # (AUTO) 0.3 10^3/uL (0.0-0.3); EOSINOPHILS % (AUTO) 3 % (0-10); HEMATOCRIT 40 % (35-52); HEMOGLOBIN 13.2 g/dL (11.5-16.0); LYMPHOCYTES % (AUTO) 9 % (12-44); MEAN CORPUSCULAR HEMOGLOBIN 31 pg (25-34); MEAN CORPUSCULAR HGB CONC 33 g/dL (32-36); MEAN CORPUSCULAR VOLUME 93 fL (80-99); MEAN PLATELET VOLUME 9.5 fL (9.0-12.2); MONOCYTES # (AUTO) 0.8 10^3/uL (0.0-1.0); MONOCYTES % (AUTO) 8 % (0-12); NEUTROPHILS # (AUTO) 8.2 10^3/uL (1.8-7.8); NEUTROPHILS % (AUTO) 80 % (42-75); PLATELET COUNT 383 10^3/uL (130-400); WHITE BLOOD COUNT 10.3 10^3/uL (4.3-11.0)
--- NOTE | 2021-10-10 11:38 | Diagnostic Imaging Report ---
INDICATION: Epigastric/chest pain starting earlier this morning after breakfast.. TECHNIQUE: Single view chest 11:11 AM. CORRELATION STUDY: 05/15/2016 FINDINGS: Heart size remains mildly prominent and relatively stable. Vasculature is also slightly increased but without overt failure. The lungs are clear with no consolidating infiltrate. There is no significant effusion or pneumothorax. IMPRESSION: 1. Heart size and vasculature appear borderline but without evidence for overt failure. No pulmonary infiltrate. Dictated by: Dictated on workstation # [id number]
[2021-10-10 11:39] LABS: POTASSIUM 3.9 MMOL/L (3.6-5.0)
[2021-10-10 11:40] LABS: CALCIUM 10.6 MG/DL (8.5-10.1)
[2021-10-10 11:42] LABS: TOTAL PROTEIN 6.7 GM/DL (6.4-8.2)
[2021-10-10 11:44] LABS: PROTHROMBIN TIME PATIENT 13.6 SEC (12.2-14.7)
[2021-10-10 11:45] LABS: CREATININE SERUM 0.76 MG/DL (0.60-1.30)
[2021-10-10 12:14] VITALS: BP 151/65
== END 2021-10-10 12:14 | disposition home or self-care (01) ==
LOC: EDUNIT# 10:39 → ER 10:41
DX: R10.13 Epigastric pain (principal)
CPT/HCPCS: 36415; 71045; 80053; 83735; 83874; 83880; 84484; 85025; 85610; 85730; 93005; 93041

== ENCOUNTER → 2021-10-26 | Outpatient (CLI) | payer MEDICARE ==
--- NOTE | 2021-10-26 09:54 | Diagnostic Imaging Report ---
PROCEDURE: US Gallbladder. TECHNIQUE: Multiple Real-time grayscale images were obtained over the right upper quadrant in various projections. INDICATION: Right upper quadrant pain and elevated liver function tests. FINDINGS: The liver is normal in size at 13.4 cm. The portal vein is patent and shows normal direction of flow. No discrete liver mass is identified. The gallbladder is distended. The gallbladder wall does not appear to be appreciably thickened. There does appear to be a sludge ball present in the gallbladder. The extrahepatic bile duct is dilated up to 12 mm. There is some ductal dilatation near the kimi hepatis as well. No definite common duct stone is visualized sonographically. The patient did complain of pain over the gallbladder. The pancreas is obscured by bowel gas. The aorta is nonaneurysmal. The IVC is patent. The right kidney demonstrates some cortical thinning. There are renal cysts on the right in the lower pole with the largest approximately 18 mm in size. No calculus or hydronephrosis is seen. There is no ascites. IMPRESSION: 1. Gallbladder hydrops with intrahepatic and extrahepatic biliary ductal dilatation. Distal duct obstruction is suspected and CT or MRCP would be recommended for further evaluation. 2. Right renal cysts. Dictated by: Dictated on workstation # [id number]
== END ==
LOC: RAD 08:15
PROVIDERS: ATTEND Family Medicine
DX: N28.1 Cyst of kidney, acquired (principal); R79.89 Other specified abnormal findings of blood chemistry
CPT/HCPCS: 76705

== ENCOUNTER → 2021-11-02 | Outpatient (CLI) | payer MEDICARE ==
--- NOTE | 2021-11-02 16:31 | Diagnostic Imaging Report ---
PROCEDURE: US right lower extremity venous. TECHNIQUE: Multiple Real-time grayscale images were obtained over the right lower extremity in various projections. Additional spectral analysis and color Doppler duplex images were also obtained. INDICATION: Right lower extremity pain. FINDINGS: There is no evidence of right lower extremity DVT. The right lower extremity deep venous system shows normal compressibility with normal response to augmentation and Valsalva. No fluid collection or mass is detected. IMPRESSION: No evidence of right lower extremity DVT. Dictated by: Dictated on workstation # [id number]
--- NOTE | 2021-11-02 17:18 | Diagnostic Imaging Report ---
PROCEDURE: CT abdomen without contrast. TECHNIQUE: Multiple contiguous axial images were obtained through the abdomen without the use of intravenous contrast. Auto Exposure Controls were utilized during the CT exam to meet ALARA standards for radiation dose reduction. INDICATION: Dilated gallbladder, right upper quadrant abdominal pain COMPARISON: Gallbladder ultrasound of 10/26/21 FINDINGS: The lung bases are clear. The gallbladder is slightly dilated without inflammation. There is some hyperdense material in the dependent portion of the gallbladder representing tiny stones and/or sludge. There is some slight intra and extrahepatic biliary duct dilatation. No obvious obstructing lesion is seen. There is nonobstructive stone in the left renal pelvis measuring 11 mm. Smaller nonobstructive stones are seen in the upper and lower pole left kidney. Small cysts are seen bilaterally. There is a nonobstructive stone in the lower pole of the right kidney. The liver, spleen, pancreas, adrenal glands, vascular structures and bowel otherwise normal. There is no free air or free fluid. Osseous structures are intact. IMPRESSION: 1. Slightly dilated gallbladder containing tiny stones and/or sludge. 2. Slight intrahepatic and extrahepatic biliary duct dilatation without obvious obstructing lesion. 3. No CT evidence of cholecystitis. Dictated by: Dictated on workstation # [id number]
== END ==
LOC: RAD 13:45
PROVIDERS: ATTEND Family Medicine
DX: R10.11 Right upper quadrant pain (principal); M79.662 Pain in left lower leg
CPT/HCPCS: 74150

== ENCOUNTER 2022-03-08 11:30 | Emergency (ER) | payer MEDICARE ==
[~2022-03-08] VITALS: Ht 167.7 cm; Wt 66.6 kg
--- NOTE | 2022-03-08 12:19 | ED Lower Extremity ---
General Chief Complaint: Lower Extremity Stated Complaint: PT HAS 2 STINTS IN HER RT LEG, TOES & ANKLE NUMB Source: patient Exam Limitations: no limitations History of Present Illness Date Seen by Provider: Mar 08, 2022 Time Seen by Provider: 12:13 Initial Comments To ER by private vehicle with reports of right lower extremity tingling. She states it feels like the lateral part of her foot has gone to sleep as well as t he calf. This began yesterday throughout the day and she does not recall any incident that started this. She does have 2 stents behind the right knee that were placed in about 2001 or 2002. She went to urgent care yesterday and they determined that she had good flow in the arteries. She has been doing a lot of housework up and down and on the floor cleaning the wood. She states this is only the lateral 3 toes, the first 2 toes are not affected. Onset: yesterday Severity: moderate Pain/Injury Location: right leg Method of Injury: unknown Modifying Factors: Improves With Movement Allergies and Home Medications Allergies Coded Allergies: niacin (Unverified Allergy, Severe, 10/03/13) Penicillins (Unverified Allergy, Mild, 01/18/09) codeine (Unverified Allergy, Mild, 01/18/09) nitroglycerin (Unverified Allergy, Mild, 01/18/09) Tetracyclines (Unverified Allergy, Unknown, 10/03/13) clarithromycin (Unverified Allergy, Unknown, 10/03/13) hydroxyzine (Unverified Allergy, Unknown, 10/03/13) metronidazole (Unverified Allergy, Unknown, 10/03/13) tramadol (Unverified Allergy, Unknown, NAUSEA, 10/03/13) Patient Home Medication List Home Medication List Reviewed: Yes Cephalexin (Cephalexin) 500 Mg Tablet, 500 MG PO Q8H Prescribed by: SANDIP DELCID on 03/06/192028 Cholecalciferol (Vitamin D3) 1,000 Unit Capsule, 1,000 UNIT PO BID, (Reported) Entered as Reported by: ALISSON BELL on 10/04/13 6405 Ciprofloxacin HCl (Cipro) 500 Mg Tablet, 500 MG PO BID Prescribed by: LARA CATHERINE on 06/09/18 1242 Famotidine (Acid [employer] (FAMOTIDINE)) 20 Mg Tablet, 20 MG PO DAILY, (Reported) Entered as Reported by: ALISSON BELL on 11/10/16 121 Fenofibrate,Micronized (Tricor) 145 Mg Tablet, 145 MG PO DAILY, (Reported) Entered as Reported by: ALISSON BELL on 10/04/13 075 Hydrochlorothiazide (Hydrochlorothiazide) 12.5 Mg Tablet, 12.5 MG PO DAILY, (Reported) Entered as Reported by: ALISSON BELL on 11/10/16 121 Hydrocodone Bit/Acetaminophen (Lortab 5 Mg Tablet) 1 Tab Tab, 1 EACH PO Q4-6HR PRN for PAIN-MODERATE Prescribed by: SANDIP DELCID on 03/06/192026 Metoprolol Tartrate (Metoprolol Tartrate 25 Mg) 25 Mg Tablet, 25 MG PO BID, (Reported) Entered as Reported by: ALISSON BELL on 10/04/13 075 Review of Systems Constitutional: see HPI EENTM: see HPI Respiratory: no symptoms reported Cardiovascular: no symptoms reported Genitourinary: no symptoms reported Musculoskeletal: see HPI Skin: no symptoms reported Psychiatric/Neurological: No Symptoms Reported Past Cqyjswf-Zgpunc-Vxvyzd Hx Immunizations Up To Date Third COVID19 Vaccination Date: UNKNOWN DATE Seasonal Allergies Seasonal Allergies: Yes Past Medical History Surgeries: Yes (bladder sx, ) Abdominal, Appendectomy, Hysterectomy, Tonsillectomy, Vascular Surgery Respiratory: Yes Pneumonia Cardiac: Yes Hypertension, Peripheral Vascular Neurological: No 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 0oz. [id number]; 24.00 BMI Method:Stated General Appearance: WD/WN, no apparent distress HEENT: PERRL/EOMI, normal ENT inspection Neck: non-tender, full range of motion Respiratory: no respiratory distress, no accessory muscle use Gastrointestinal: normal bowel sounds, non tender Hips: bilateral hip non-tender, bilateral hip normal inspection, bilateral hip normal range of motion Legs: bilateral leg non-tender, bilateral leg normal inspection, bilateral leg normal range of motion Knees: bilateral knee non-tender, bilateral knee normal inspection, bilateral knee normal range of motion; right knee other (At the right knee over the fibular head laterally and slightly anterior there is a 4 cm circular ecchymosis. Patient was not aware that she had this.) Ankles: bilateral ankle non-tender, bilateral ankle normal inspection, bilateral ankle normal range of motion Feet: bilateral foot non-tender, bilateral foot normal inspection, bilateral foot no evidence of injury, bilateral foot other (Both feet are warm and well- perfused. Specifically the lateral 3 toes of the right foot are warm. There is no cyanotic dusky or ischemic tissue. I am able to use the Doppler to auscultate brisk blood flow over the dorsalis pedis artery and the posterior tibial artery.) Neurologic/Psychiatric: alert, normal mood/affect, oriented x 3 Skin: normal color, warm/dry Progress/Results/Core Measures Results/Orders My Orders Orders - KRYSTIN HEATON APRN Right Low Ext [id number] (03/08/22 12:12) Vital Signs/I&O 03/08/22 12:04 Temp 36.3 Pulse 64 Resp 16 B/P (MAP) 171/73 (105) Pulse Ox 95 O2 Delivery Room Air Departure Communication (Admissions) NAME: BRAULIO GONZALEZ MED REC#: [id number] PT STATUS: REG ER : 1935 PHYSICIAN: KRYSTIN HEATON APRN ADMIT DATE: 03/08/22/ER Draft Date of Exam:03/08/22 RIGHT LOW EXT [id number] INDICATION: Right foot tingling. Patient has a history of a popliteal artery aneurysm and stent. Grayscale, color-flow and duplex Doppler evaluation of the right lower extremity arterial system was performed. Predominantly biphasic waveforms throughout the right lower extremity arterial system are noted. Popliteal artery stent is noted. The stent appears to be patent. There is a focal area of a velocity elevation in the mid stent reaching 172 cm/s. No occlusion is identified. There is blood flow at the ankle via the dorsalis pedis and posterior tibial artery. IMPRESSION: No evidence of high-grade stenosis or occlusion. There is some mid popliteal stent velocity elevation which could represent some focal stenosis. No other significant abnormality is seen. Dictated on workstation # [id number] Dict: 03/08/22 1324 Trans: 03/08/22 1335 CVB [id number] Interpreted by: KVNG CABALLERO MD Electronically signed by: For the sake of thoroughness and given her history of a stent I will go ahead and get an official arterial ultrasound of the right lower extremity. However she has good flow on bedside Doppler. Normal dorsiflexion and plantar flexion of the foot. Given the small ecchymosis over the fibular head I would suspect a peroneal (or other peripheral) nerve injury. She does state that she always has some low back pain. Denies pain in buttocks or thigh. 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 Decision time for Depature: 12:22 Referrals: TATIANA WASHINGTON DO (PCP/Family) Primary Care Physician Patient Instructions: NO INSTRUCTIONS GIVEN Add. Discharge Instructions: All discharge instructions reviewed with patient and/or family. Voiced understanding. Images Extremities-Lower 1 - Ecchymosis 1 - 1 - Copy Copies To 1: TATIANA WASHINGTON PETER J APRN Mar 08, 2022 12:19
--- NOTE | 2022-03-08 13:36 | Diagnostic Imaging Report ---
INDICATION: Right foot tingling. Patient has a history of a popliteal artery aneurysm and stent. Grayscale, color-flow and duplex Doppler evaluation of the right lower extremity arterial system was performed. Predominantly biphasic waveforms throughout the right lower extremity arterial system are noted. Popliteal artery stent is noted. The stent appears to be patent. There is a focal area of a velocity elevation in the mid stent reaching 172 cm/s. No occlusion is identified. There is blood flow at the ankle via the dorsalis pedis and posterior tibial artery. IMPRESSION: No evidence of high-grade stenosis or occlusion. There is some mid popliteal stent velocity elevation which could represent some focal stenosis. No other significant abnormality is seen. Dictated by: Dictated on workstation # [id number]
[2022-03-08 13:47] VITALS: BP 116/86
== END 2022-03-08 13:47 | disposition home or self-care (01) ==
LOC: EDUNIT# 11:30 → ER 11:33
DX: S84.91XA Injury of unspecified nerve at lower leg level, right leg, initial encounter (principal); Z98.62 Peripheral vascular angioplasty status; X58.XXXA Exposure to other specified factors, initial encounter
CPT/HCPCS: 93926

== ENCOUNTER 2023-01-19 18:53 | Emergency (ER) | payer MEDICARE ==
[~2023-01-19] VITALS: Ht 167 cm; Wt 70.3 kg
[2023-01-19 19:17] LABS: BASOPHILS # (AUTO) 0.1 10^3/uL (0.0-0.1); BASOPHILS % (AUTO) 1 % (0-10); EOSINOPHILS # (AUTO) 0.4 10^3/uL (0.0-0.3); EOSINOPHILS % (AUTO) 4 % (0-10); HEMATOCRIT 40 % (35-52); HEMOGLOBIN 13.2 g/dL (11.5-16.0); LYMPHOCYTES # (AUTO) 2.6 10^3/uL (1.0-4.0); LYMPHOCYTES % (AUTO) 29 % (12-44); MEAN CORPUSCULAR HEMOGLOBIN 31 pg (25-34); MEAN CORPUSCULAR HGB CONC 33 g/dL (32-36); MEAN CORPUSCULAR VOLUME 94 fL (80-99); MEAN PLATELET VOLUME 9.7 fL (9.0-12.2); MONOCYTES # (AUTO) 0.8 10^3/uL (0.0-1.0); MONOCYTES % (AUTO) 9 % (0-12); NEUTROPHILS # (AUTO) 5.1 10^3/uL (1.8-7.8); NEUTROPHILS % (AUTO) 57 % (42-75); PLATELET COUNT 374 10^3/uL (130-400)
--- NOTE | 2023-01-19 19:17 | ED General ---
General Chief Complaint: Dizziness/Syncope Stated Complaint: DIZZY Nursing Triage Note: PATIENT STATES DIZZY TODAY, DENIES SOB, CHEST PAIN, WITH DIZZINESS. PATIENT STATES SHE DID NOT GET A LOT OF SLEEP LAST NIGHT Source of Information: Patient Exam Limitations: No Limitations (DEANGELO LEE) History of Present Illness Date Seen by Provider: Jan 19, 2023 Time Seen by Provider: 19:14 Initial Comments Patient is a 87-year-old female who presents ED with dizziness. Dizziness started this morning. Dizziness appears to be intermittent. Does not appear to be related with walking or any movement. She states she has had the symptoms in the past. She has been seen for this dizziness. She also reports lightheadedness. She reports "fluffy" feeling to the back part of her head. She does report of pressure behind her shoulder blades which is is chronic. She has chronic pain to her right shoulder. She denies any chest pain, shortness of breath, cough, vomiting, diarrhea, unilateral muscle weakness or sensory changes. She denies of any visual changes or blurry vision. Patient is able to ambulate without difficulty. She concerned she may be developing a UTI and has been drinking more fluid. Denies history of coronary artery disease, stroke, diabetes. She does have a history of hypertension currently on metoprolol. She denies fever, chills, bodyaches, abdominal pain, dysuria. (DEANGELO LEE) Allergies and Home Medications Allergies Coded Allergies: niacin (Unverified Allergy, Severe, 10/03/13) Penicillins (Unverified Allergy, Mild, 01/18/09) codeine (Unverified Allergy, Mild, 01/18/09) nitroglycerin (Unverified Allergy, Mild, 01/18/09) Tetracyclines (Unverified Allergy, Unknown, 10/03/13) clarithromycin (Unverified Allergy, Unknown, 10/03/13) hydroxyzine (Unverified Allergy, Unknown, 10/03/13) metronidazole (Unverified Allergy, Unknown, 10/03/13) tramadol (Unverified Allergy, Unknown, NAUSEA, 10/03/13) Patient Home Medication List Home Medication List Reviewed: Yes (DEANGELO LEE) Cephalexin (Cephalexin) 500 Mg Tablet, 500 MG PO Q8H Prescribed by: SANDIP DELCID on 03/06/192028 Cholecalciferol (Vitamin D3) 1,000 Unit Capsule, 1,000 UNIT PO BID, (Reported) Entered as Reported by: ALISSON EBLL on 10/04/13 075 Ciprofloxacin HCl (Cipro) 500 Mg Tablet, 500 MG PO BID Prescribed by: LARA CATHERINE on 06/09/18 1242 Famotidine (Acid Crime Lab Analyst (FAMOTIDINE)) 20 Mg Tablet, 20 MG PO DAILY, (Reported) Entered as Reported by: ALISSON BELL on 11/10/16 1215 Fenofibrate,Micronized (Tricor) 145 Mg Tablet, 145 MG PO DAILY, (Reported) Entered as Reported by: ALISSON BELL on 10/04/13 075 Hydrochlorothiazide (Hydrochlorothiazide) 12.5 Mg Tablet, 12.5 MG PO DAILY, (Reported) Entered as Reported by: ALISSON BELL on 11/10/16 1215 Hydrocodone Bit/Acetaminophen (Lortab 5 Mg Tablet) 1 Tab Tab, 1 EACH PO Q4-6HR PRN for PAIN-MODERATE Prescribed by: SANDIP DELCID on 03/06/192026 Metoprolol Tartrate (Metoprolol Tartrate 25 Mg) 25 Mg Tablet, 25 MG PO BID, (Reported) Entered as Reported by: ALISSON BELL on 10/04/13 0755 Review of Systems Review of Systems Constitutional: No chills, No diaphoresis; dizziness; No fever, No malaise, No weakness EENTM: No ear pain, No blurred vision, No double vision, No vision loss, No hoarseness, No mouth pain, No mouth swelling Respiratory: No cough, No dyspnea on exertion Cardiovascular: No chest pain Gastrointestinal: No abdominal pain, No diarrhea, No nausea, No vomiting Genitourinary: No decreased output, No discharge Musculoskeletal: No back pain, No joint pain Skin: No change in color, No change in hair/nails (DEANGELO LEE) All Other Systems Reviewed Negative Unless Noted: Yes (DEANGELO LEE) Past Jmmfdid-Ireptd-Dndrbn Hx Immunizations Up To Date Influenza Vaccine Up-to-Date: Yes; Up-to-Date First/Initial COVID19 Vaccinat: UNKNOWN DATE Second COVID19 Vaccination Kofi: UNKNOWN DATE Third COVID19 Vaccination Date: UNKNOWN DATE (DEANGELO LEE) Seasonal Allergies Seasonal Allergies: Yes (DEANGELO LEE) Past Medical History Surgeries: Yes (bladder sx, ) Abdominal, Appendectomy, Hysterectomy, Tonsillectomy, Vascular Surgery Respiratory: Yes Pneumonia Cardiac: Yes Hypertension, Peripheral Vascular Neurological: No 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 0oz. [id number]; 25.00 BMI Method:Stated General Appearance: No Apparent Distress, WD/WN Eyes: Bilateral Eye Normal Inspection, Bilateral Eye PERRL, Bilateral Eye EOMI HEENT: PERRL/EOMI, TMs Normal, Normal ENT Inspection, Pharynx Normal Neck: Full Range of Motion, Normal Inspection, Non Tender, Supple Respiratory: Chest Non Tender, Lungs Clear, Normal Breath Sounds, No Accessory Muscle Use, No Respiratory Distress Cardiovascular: Regular Rate, Rhythm, No Edema, No Gallop, No JVD, No Murmur Gastrointestinal: Normal Bowel Sounds, No Organomegaly, No Pulsatile Mass, Non Tender Back: Normal Inspection, No CVA Tenderness, No Vertebral Tenderness Extremity: Normal Capillary Refill, Normal Inspection, Normal Range of Motion, Non Tender Neurologic/Psychiatric: Alert, Oriented x3, No Motor/Sensory Deficits, Normal Mood/Affect, video editor II-XII Norm as Tested Skin: Normal Color, Warm/Dry (DEANGELO LEE) Progress/Results/Core Measures Suspected Sepsis SIRS Temperature: Pulse: 70 Respiratory Rate: 17 Laboratory Tests 01/19/23 19:05: White Blood Count 9.0 Blood Pressure 203 /97 Mean: 132 Laboratory Tests 7/5/23 19:05: Creatinine 0.79, Platelet Count 374, Total Bilirubin 0.4 (DEANEGLO LEE) Results/Orders Lab Results Laboratory Tests Test 01/19/23 19:05 01/19/23 20:30 Range/Units White Blood Count 9.0 4.3-11.0 10^3/uL Red Blood Count 4.31 3.80-5.11 10^6/uL Hemoglobin 13.2 11.5-16.0 g/dL Hematocrit 40 35-52 % Mean Corpuscular Volume 94 80-99 fL Mean Corpuscular Hemoglobin 31 25-34 pg Mean Corpuscular Hemoglobin Concent 33 32-36 g/dL Red Cell Distribution Width 12.6 10.0-14.5 % Platelet Count 374 130-400 10^3/uL Mean Platelet Volume 9.7 9.0-12.2 fL Immature Granulocyte % (Auto) 0 % Neutrophils (%) (Auto) 57 42-75 % Lymphocytes (%) (Auto) 29 12-44 % Monocytes (%) (Auto) 9 0-12 % Eosinophils (%) (Auto) 4 0-10 % Basophils (%) (Auto) 1 0-10 % Neutrophils # (Auto) 5.1 1.8-7.8 10^3/uL Lymphocytes # (Auto) 2.6 1.0-4.0 10^3/uL Monocytes # (Auto) 0.8 0.0-1.0 10^3/uL Eosinophils # (Auto) 0.4 H 0.0-0.3 10^3/uL Basophils # (Auto) 0.1 0.0-0.1 10^3/uL Immature Granulocyte # (Auto) 0.0 0.0-0.1 10^3/uL Sodium Level 141 135-145 MMOL/L Potassium Level 4.3 3.6-5.0 MMOL/L Chloride Level 107 98-107 MMOL/L Carbon Dioxide Level 24 21-32 MMOL/L Anion Gap 10 5-14 MMOL/L Blood Urea Nitrogen 15 7-18 MG/DL Creatinine 0.79 0.60-1.30 MG/DL Estimat Glomerular Filtration Rate 71 BUN/Creatinine Ratio 19 Glucose Level 101 70-105 MG/DL Calcium Level 9.9 8.5-10.1 MG/DL Corrected Calcium 9.8 8.5-10.1 MG/DL Magnesium Level 2.0 1.6-2.4 MG/DL Total Bilirubin 0.4 0.1-1.0 MG/DL Aspartate Amino Transf (AST/SGOT) 22 5-34 U/L Alanine Aminotransferase (ALT/SGPT) 15 0-55 U/L Alkaline Phosphatase 121 40-136 U/L Total Protein 6.8 6.4-8.2 GM/DL Albumin 4.1 3.2-4.5 GM/DL Urine Color YELLOW Urine Clarity CLEAR Urine pH 6.0 5-9 Urine Specific [place] <=1.005 1.016-1.022 Urine Protein NEGATIVE NEGATIVE Urine Glucose (UA) NEGATIVE NEGATIVE Urine Ketones NEGATIVE NEGATIVE Urine Nitrite NEGATIVE NEGATIVE Urine Bilirubin NEGATIVE NEGATIVE Urine Urobilinogen 0.2 < = 1.0 MG/DL Urine Leukocyte Esterase 2+ H NEGATIVE Urine RBC (Auto) 1+ H NEGATIVE Urine RBC 0-2 /HPF Urine WBC 2-5 /HPF Urine Squamous Epithelial Cells 0-2 /HPF Urine Crystals NONE /LPF Urine Bacteria TRACE /HPF Urine Casts NONE /LPF Urine Mucus NEGATIVE /LPF Urine Other /HPF Urine Culture Indicated YES (TRE MEI DO) Vital Signs/I&O 01/19/23 01/19/23 01/19/23 19:06 21:23 21:28 Temp 36.8 Pulse 70 66 65 68 Resp 17 20 B/P (MAP) 203/97 (132) 176/74 (108) 129/79 175/75 (108) 129/79 (96) Pulse Ox 95 94 O2 Delivery Room Air Room Air (TRE MEI DO) Vital Signs/I&O Capillary Refill : Less Than 3 Seconds (DEANGELO LEE) Blood Pressure Mean: 132 ECG Comment Sinus rhythm, borderline left axis deviation, right bundle branch block, 64 bpm, QRS duration 120 MS, QTc 420 MS (DEANGELO LEE) Departure Communication (PCP) Patient presents the ED for lightheadedness dizziness, " fluffiness of the head". She has no unilateral weakness or sensory changes facial droop. No history of stroke, coronary artery disease. She cannot recall any specific time the dizziness does occur such as walking or any sudden change of movement. Denies a room spinning. History of similar symptoms in the past. She states she has been under a lot of stress. She also states she has not been sleeping as well. two hours of sleep last night. She did work outside yesterday but states she did go inside and drink plenty of fluids. She is not on diuretic. She does take metoprolol 25 mg twice daily for blood pressure. Due to her current complaint CT scan head, EKG, general lab work with urinalysis. She has no specific urinary symptoms but has had some intermittent burning with urination but none today. She was hypertensive but did improve without any intervention. EKG showed sinus rhythm with right bundle branch block. No ST elevation depression , A-fib or a flutter. CBC and CMP grossly unremarkable. Her urinalysis did note +2 leukocytes with +1 red blood cells. Culture pending. No strong evidence of UTI. She has no current urinary symptoms. She agrees to wait until culture returns at this time. She is afebrile. She drank a full bottle of water here. She does not appear of any acute distress. She has no neurological red flag findings however her dizziness would be of concern for potential cerebellar infarct. She does not have the nausea vomiting headache or vertigo type symptoms which typically related to cerebellar infarcts.. Dizziness is nonspecific. CT scan of the head was unremarkable. Patient remained asymptomatic during her stay.. She had a steady gait without the feeling of dizzy. Did perform orthostatics and she did drop near 50 points from lying to sitting. She denies feeling dizziness during that. She does not appear hypovolemic. She is not anemic. Heart rate remained in the 60s and 70s. No vomiting, diarrhea or on diuretics suggesting volume depletion. She is not diabetic. Likely secondary to aging versus medication however I do recommend continue monitoring. Recommend taking your time while standing from a lying. Recommend follow-up with cardiology. Discussed this with your primary care physician. She does have a follow-up in the next few weeks. Recommend finding a earlier appointment. If any unilateral weakness, sensory changes, facial droop, head pain, vomiting, room spinning to return back to ED. She had no meningeal signs. She does not appear toxic. No nystagmus with [place]. No ear ringing or hearing loss. She has no visual changes. Patient asymptomatic at this time. Patient will be discharged with strict return precautions. (DEANGELO LEE) Impression Primary Impression: Dizziness Disposition: 01 HOME, SELF-CARE Condition: Stable Departure-Patient Inst. Decision time for Depature: 21:16 (DEANGELO LEE) Referrals: TATIANA WASHINGTON DO (PCP/Family) Primary Care Physician Patient Instructions: Dizziness, Adult ED Add. Discharge Instructions: Recommend rest, staying hydrated. Follow-up your PCP for further evaluation. If any worsening symptoms such as unilateral weakness, facial droop, visual loss, worsening dizziness return back to ED All discharge instructions reviewed with patient and/or family. Voiced understanding. ATTENDING PHYSICIAN NOTE: I WAS PHYSICALLY PRESENT ER PHYSICIAN, BUT I WAS NOT INVOLVED IN ANY DECISION MAKING OR ANY CARE OF THIS PATIENT, AND I AM NOT COLLABORATING PHYSICIAN. (TRE MEI DO) DEANGELO LEE Jan 19, 2023 19:17 TRE MEI DO Jan 20, 2023 07:16
[2023-01-19 19:34] LABS: ALBUMIN 4.1 GM/DL (3.2-4.5); BILIRUBIN,TOTAL 0.4 MG/DL (0.1-1.0); CALCIUM 9.9 MG/DL (8.5-10.1); CREATININE SERUM 0.79 MG/DL (0.60-1.30); POTASSIUM 4.3 MMOL/L (3.6-5.0); TOTAL PROTEIN 6.8 GM/DL (6.4-8.2)
--- NOTE | 2023-01-19 19:44 | Diagnostic Imaging Report ---
PROCEDURE: CT head wo r/o stroke. TECHNIQUE: Multiple contiguous axial images were obtained through the brain without the use of intravenous contrast. Auto Exposure Controls were utilized during the CT exam to meet ALARA standards for radiation dose reduction. INDICATION: Dizziness The ventricles are normal in size, shape and position. There are no masses or hemorrhages. There are no extra-axial fluid collections. IMPRESSION: No acute abnormality seen in the head Dictated by: Dictated on workstation # [id number]
[2023-01-19 20:48] LABS: BILIRUBIN,URINE NEGATIVE (NEGATIVE); CLARITY,URINE CLEAR; COLOR,URINE YELLOW; GLUCOSE, URINE (UA) NEGATIVE (NEGATIVE); KETONES,URINE NEGATIVE (NEGATIVE); LEUKOCYTE ESTERASE ,URINE 2+ (NEGATIVE); NITRITE,URINE NEGATIVE (NEGATIVE); PROTEIN,URINE NEGATIVE (NEGATIVE)
[2023-01-19 21:02] LABS: BACTERIA,URINE TRACE /HPF; RBC,URINE 0-2 /HPF; SQUAMOUS EPITHELIAL CELL,UR 0-2 /HPF
[2023-01-19 21:23] VITALS: BP_SYST 129; BP_SYST 175; BP_SYST 176; BP_DIAS 74; BP_DIAS 75; BP_DIAS 79
[2023-01-19 21:28] VITALS: BP 129/79
== END 2023-01-19 21:29 | disposition home or self-care (01) ==
LOC: ER 18:53 → EDUNIT# 18:53 → ER 21:29
DX: R42 Dizziness and giddiness (principal); I45.10 Unspecified right bundle-branch block; I10 Essential (primary) hypertension; Z79.899 Other long term (current) drug therapy
CPT/HCPCS: 36415; 70450; 80053; 81000; 83735; 85025; 87088; 93005

== ENCOUNTER → 2023-03-15 | Outpatient (CLI) | payer MEDICARE ==
--- NOTE | 2023-03-15 15:45 | Diagnostic Imaging Report ---
PROCEDURE: US LEFT UP EXT ARTERIAL [id number]. TECHNIQUE: Multiple Real-time grayscale images were obtained over the left upper extremity in various projections. Duplex Doppler and color Doppler images were also obtained. INDICATION: Finger discoloration. FINDINGS: The patient has multiphasic wave patterns throughout the left upper extremity with normal velocity transition. IMPRESSION: Unremarkable arterial Doppler of the left upper extremity. Dictated by: Dictated on workstation # [id number]
== END ==
LOC: RAD 13:34
PROVIDERS: ATTEND Nurse Practitioner Family
DX: L81.9 Disorder of pigmentation, unspecified (principal)
CPT/HCPCS: 93931

== ENCOUNTER 2023-03-30 06:05 | Outpatient (CLI) | payer MEDICARE ==
[~2023-03-30] VITALS: Ht 167.7 cm; Wt 67.7 kg
[~2023-03-30 06:05] MED LIST changes: +FAMO-356 PO; -FAMO20TA3 PO
[2023-03-30] MEDS ORDERED: METO-333 PO (10:11)
[2023-03-30] MEDS ORDERED: ASPI-999 PO (10:11)
[2023-03-30] MEDS ORDERED: CHOL-34 PO (10:11)
[2023-03-30] MEDS ORDERED: BACI1TAB24 PO (10:11)
[2023-03-30] MEDS ORDERED: VITA-259 PO (10:11)
== END 2023-03-30 10:14 | disposition home or self-care (01) ==
LOC: PREOP 06:05
PROVIDERS: ATTEND Internal Medicine
DX: Z01.818 Encounter for other preprocedural examination (principal)